=== PATIENT | female | born 1955 | race American Indian/Alaskan Native ===

== ENCOUNTER 2016-05-07 11:57 | Inpatient (IN) | payer OTHER ==
[2016-05-07 12:50] LABS: Basophils % (Auto) 0.5 % (0.0-1.8); Hematocrit 37.7 % (30.3-42.9); Mean Corpuscular HGB Conc 32 % (30-34); Mean Corpuscular Hemoglobin 27 pg (28-32); Mean Corpuscular Volume 85 fl (79-97); Platelet Count 335 K/mm3 (140-440); Red Blood Count 4.44 M/mm3 (3.65-5.03); White Blood Count 12.4 K/mm3 (4.5-11.0)
[2016-05-07 12:53] LABS: Bilirubin,Urine NEG (Negative); Blood,Urine NEG (Negative); Ketones,Urine NEG (Negative); Leukocyte Esterase,Urine NEG (Negative); Mucus,Urine FEW /HPF; Nitrite,Urine NEG (Negative); Protein,Urine <15 mg/dL mg/dL (Negative); Urobilinogen,Urine < 2.0 mg/dL (<2.0)
[2016-05-07 13:08] LABS: Alanine Aminotransferase 12 units/L (7-56); Albumin 4.5 g/dL (3.9-5); Alkaline Phosphatase 72 units/L (35-129); Anion Gap 21 mmol/L; BUN/Creatinine Ratio 14.28; Bilirubin,Total 0.3 mg/dL (0.1-1.2); Blood Urea Nitrogen 10 mg/dL (7-17); Calcium 9.1 mg/dL (8.4-10.2); Carbon Dioxide 25 mmol/L (22-30); Chloride 99.1 mmol/L (98-107); Glucose 137 mg/dL (65-100); Lipase 14 units/L (13-60); Potassium 3.6 mmol/L (3.6-5.0); Sodium 141 mmol/L (137-145); Total Protein 8.8 g/dL (6.3-8.2)
[2016-05-07] MEDS ORDERED: TORADOL IV ONE (15:43)
[2016-05-07] MEDS ORDERED: ZOFRAN IV ONE (15:43)
[2016-05-07] MEDS ORDERED: MORPHINE IV ONE ×2 (16:48→20:01)
--- NOTE | 2016-05-07 19:45 | Cat Scan Report ---
FINAL REPORT PROCEDURE: CT ABDOMEN PELVIS W CON TECHNIQUE: Computerized axial tomography of the abdomen and pelvis was performed after the IV injection of iodinated nonionic contrast. HISTORY: abd pain , recurrent constipation hx of colon canc COMPARISON: No prior studies are available for comparison. FINDINGS: Visualized lower thorax: No significant abnormality. Liver: Normal size and attenuation. Spleen: Normal size and attenuation. Gallbladder and biliary system: Gallbladder is present. Pancreas: Normal. Adrenals: 9 millimeter left adrenal nodule. Kidneys: Normal. GI tract: There are sutures in the left colon. There is a segment of wall thickening and inflammation at the junction of the sigmoid and left colon with a large volume of stool seen this region is well. Cannot exclude an element of obstruction, versus dilatation related to purse surgical changes. No evidence of small bowel obstruction. The appendix is visualized and does not appear inflamed. Lymph nodes and mesentery: Normal. Vasculature: Normal. Bladder: Normal. Reproductive organs: Normal. Peritoneum: No free fluid. Musculoskeletal structures: No significant abnormality. Other: None. IMPRESSION: There is a large volume of stool in the left colon and proximal sigmoid colon. There is a focal segment of wall thickening and inflammation of the proximal sigmoid colon, which is of uncertain etiology. This could be related to focal colitis. Cannot exclude a neoplastic process. This may also be causing partial obstruction. Recommend further evaluation.
[2016-05-07] MEDS ORDERED: GOLYTELY PO ONE (20:15)
--- NOTE | 2016-05-07 20:20 | Emergency Department Report ---
ED Abdominal Pain HPI - General Chief Complaint: Abdominal Pain Stated Complaint: BOWEL BACK UP Time Seen by Provider: 05/07/16 15:34 Source: patient Mode of arrival: Ambulatory Limitations: No Limitations - History of Present Illness Initial Comments: 60-year-old female with a past medical history colon cancer status post colon surgery, diabetes, and hypertension presents to the hospital complaints of abdominal pain and constipation. Patient has not had a good bowel movement in several days and had only a small amount today. Taking enemas without improvement. Patient was seen at [facility] 3 weeks ago for the same and was discharged after receiving a lassitude. Patient complains of 10/10 left upper abdominal pain that is constant, aching, worse with palpation and movement. Positive nausea and dry heaves without vomiting. Severity scale (0 -10): 8 - Related Data Home Medications Medication Instructions Recorded Confirmed Last Taken Losartan/Hydrochlorothiazide 1 each PO QDAY 05/07/16 05/07/16 05/06/16 [Losartan-Hctz 50-12.5 mg Tab] metFORMIN [Glucophage] 500 mg PO QDAY 05/07/16 05/07/16 05/06/16 Allergies Allergy/AdvReac Type Severity Reaction Status Date / Time hydromorphone HCl AdvReac Shortness Verified 05/07/16 12:16 [From Dilaudid] of Breath ED Review of Systems ROS: Stated complaint: BOWEL BACK UP Other details as noted in HPI Comment: All other systems reviewed and negative Other: Constitutional: No fevers chills Eyes: No eye pain visual changes ENT: No ear pain or throat pain Neck: Denies pain Respiratory: Denies cough wheezing shortness of breath Cardiovascular: Denies chest pain, palpitations, syncope GI: as per hpi : Denies dysuria Musculoskeletal: Denies back pain Skin: Denies rash, lesions, erythema Neurologic: Denies headache, numbness, weakness Psychiatric: Denies suicidal ideation, hallucinations Hematological/lymphatic: Denies easy bruising, lymphadenopathy ED Past Medical Hx - Past Medical History Hx Hypertension: Yes Hx Diabetes: Yes Hx of Cancer: Yes (COLON) Hx Headaches / Migraines: Yes - Surgical History Additional Surgical History: COLON SURGERY - Social History Smoking Status: Never Smoker Substance Use Type: None - Medications Home Medications: Home Medications Medication Instructions Recorded Confirmed Last Taken Type Losartan/Hydrochlorothiazide 1 each PO QDAY 05/07/16 05/07/16 05/06/16 History [Losartan-Hctz 50-12.5 mg Tab] metFORMIN [Glucophage] 500 mg PO QDAY 05/07/16 05/07/16 05/06/16 History ED Physical Exam - General Limitations: No Limitations - Other Other exam information: General: No limitations, patient is alert in no acute distress Head exam: Atraumatic, normocephalic Eyes exam: Normal appearance ENT: Moist mucous membrane, normal oropharynx Neck exam: Normal inspection, full range of motion Respiratory exam: Clear to auscultation bilateral, no wheezes, rales, crackles Cardiovascular: Normal rate and rhythm, normal heart sounds Abdomen: Soft, nondistended, left upper quadrant and left mid abdomen pain, with normal bowel sounds, no rebound, or guarding Extremity: Full range of motion normal inspection no deformity Back: Normal Inspection, full range of motion, no tenderness Neurologic: Alert, oriented x3, cranial nerves intact, no motor or sensory deficit Psychiatric: normal affect, normal mood Skin: Warm, dry, intact ED Course Vital Signs 05/07/16 05/07/16 05/07/16 12:05 16:12 16:16 Temperature 97.6 F Pulse Rate 88 Respiratory 19 18 18 Rate Blood Pressure 151/96 Blood Pressure [Left] O2 Sat by Pulse 98 98 Oximetry 05/07/16 05/07/16 05/07/16 17:14 17:45 20:07 Temperature Pulse Rate 73 Respiratory 18 18 18 Rate Blood Pressure Blood Pressure 123/76 [Left] O2 Sat by Pulse 98 Oximetry - Reevaluation(s) Reevaluation #1: 05/07/16 20:23 Patient received morphine 2 doses in the ED for pain. - Consultations Consultation #1: 05/07/16 20:[address] Nanci ESTRADA. Recommended bowel prep ED Medical Decision Making - Lab Data Result diagrams: 05/07/16 12:27 05/07/16 12:27 Lab Results 05/07/16 05/07/16 05/07/16 Range/Units 12:27 12:27 Unknown WBC 12.4 H (4.5-11.0) K/mm3 RBC 4.44 (3.65-5.03) M/mm3 Hgb 12.0 (10.1-14.3) gm/dl Hct 37.7 (30.3-42.9) % MCV 85 (79-97) fl MCH 27 L (28-32) pg MCHC 32 (30-34) % RDW 15.0 (13.2-15.2) % Plt Count 335 (140-440) K/mm3 Lymph % (Auto) 6.4 L (13.4-35.0) % [place] % (Auto) 3.9 (0.0-7.3) % Eos % (Auto) 0.0 (0.0-4.3) % Baso % (Auto) 0.5 (0.0-1.8) % Lymph # 0.8 L (1.2-5.4) K/mm3 [place] # 0.5 (0.0-0.8) K/mm3 Eos # 0.0 (0.0-0.4) K/mm3 Baso # 0.1 (0.0-0.1) K/mm3 Seg Neutrophils % 89.2 H (40.0-70.0) % Seg Neutrophils # 11.0 H (1.8-7.7) K/mm3 Sodium 141 (137-145) mmol/L Potassium 3.6 (3.6-5.0) mmol/L Chloride 99.1 (98-107) mmol/L Carbon Dioxide 25 (22-30) mmol/L Anion Gap 21 mmol/L BUN 10 (7-17) mg/dL Creatinine 0.7 (0.7-1.2) mg/dL Estimated GFR > 60 ml/min BUN/Creatinine Ratio 14.28 % Glucose 137 H (65-100) mg/dL Calcium 9.1 (8.4-10.2) mg/dL Total Bilirubin 0.3 (0.1-1.2) mg/dL AST 14 (5-40) units/L ALT 12 (7-56) units/L Alkaline Phosphatase 72 (35-129) units/L Total Protein 8.8 H (6.3-8.2) g/dL Albumin 4.5 (3.9-5) g/dL Albumin/Globulin Ratio 1.0 % Lipase 14 (13-60) units/L Urine Color [place] (Yellow) Urine Turbidity Clear (Clear) Urine pH 5.0 (5.0-7.0) Ur Specific Peak 1.024 (1.003-1.030) Urine Protein <15 mg/dl (Negative) mg/dL Urine Glucose (UA) Neg (Negative) mg/dL Urine Ketones Neg (Negative) mg/dL Urine Blood Neg (Negative) Urine Nitrite Neg (Negative) Urine Bilirubin Neg (Negative) Urine Urobilinogen < 2.0 (<2.0) mg/dL Ur Leukocyte Esterase Neg (Negative) Urine WBC (Auto) 1.0 (0.0-6.0) /HPF Urine RBC (Auto) 2.0 (0.0-6.0) /HPF U Epithel Cells (Auto) 3.0 (0-13.0) /HPF Urine Mucus Few /HPF - Radiology Data Radiology results: report reviewed (CT abdomen and pelvis by mouth IV contrast: large volume of stool in the left colon and proximal sigmoid colon. Focal segment of wall thickening and inflammation of the proximal sigmoid colon of uncertain etiology. Differential includes focal colitis but cannot exclude neoplastic process.) - Medical Decision Making Patient will be admitted to the hospital for treatment assessment constipation and pain. GI will consult to determine if inpatient colonoscopy is warranted. - Differential Diagnosis obstruction, constipation, cancer Critical Care Time: No Critical care attestation.: If time is entered above; I have spent that time in minutes in the direct care of this critically ill patient, excluding procedure time. ED Disposition Clinical Impression: Constipation, History of colon cancer, Abdominal pain Disposition: OP ADMITTED IP TO THIS HOSP Is pt being admited?: Yes Condition: Stable Time of Disposition: 20:20 (Dr Davis)
[2016-05-07] MEDS ORDERED: NACL 0.9% 1000 ML 1,000 ML IV ONE (20:41)
[2016-05-07] MEDS ORDERED: TYLENOL PO PRN (20:50)
[2016-05-07] MEDS ORDERED: D50W (25GM) IV PRN (20:51)
[2016-05-08] MEDS ORDERED: MORPHINE IV PRN (03:32)
--- NOTE | 2016-05-08 08:28 | Admit Criteria Form ---
Admission Criteria Documentation: ABDOMINAL PAIN Clinical Indications for Admission to Inpatient Care (Place 'X' for any and all applicable criteria): Admission is indicated for ANY ONE of the following(1)(2)(3)(4)(5): [ X]I. Inpatient admission required rather than observation care (Also use Abdominal Pain: Observation Care, as appropriate) because of ANY ONE of the following: [X ]a) Severe pain requiring acute inpatient management [ ]b) Identification of etiology/finding that requires inpatient care (eg, aortic dissection, free air) [ ]c) Absent bowel sounds with complete ileus(6) [ ]d) Suspected toxic megacolon [ ]e) Severe electrolyte abnormalities requiring inpatient care [ ]f) High fever or infection requiring inpatient admission as indicated by ANY ONE of following(7)(8): [ ] i) Appropriate outpatient or observational care antimicrobial treatment unavailable, not effective, or not feasible [ ] ii) Documented bacteremia [ ] iii) Temperature > 104.9 degrees F (oral) [ ] iv) T >103.1 F (oral) or < 96.8 F(rectal) that does not respond to all emergency treatment measures [ ]g) Signs of intestinal obstruction [B] [ ]h) Hemodynamic instability [ ]i) IV fluid to replace significant ongoing losses (greater than 3 L/m2 per day) (12)(13) [ ]j) Percutaneous or open drainage (eg, abscess, biliary tract ) procedures [ ]k) Parenteral nutrition regimen that must be implemented on inpatient basis [ X]l) Other condition,treatment or monitoring requiring inpatient admission. [ ]II. Peritoneal signs present [ ]III. Surgery needed that cannot be performed on an ambulatory basis. [ ]IV. Evaluation requires patient to not eat or drink for extended period ( eg, more than 24 hours). [ ]V. Contraindications and/or Inappropriate clinical situations for Observational Care in patients with abdominal pain, when ANY ONE of the following is required: [ ]a) Thorough evaluation is required to prevent catastrophic events due to delays in diagnosing (e.g.Mesenteric ischemia) 1,3 [ ]b) Patient with severe pathology or with chronic symptoms unlikely to improve in the ED stay (3) [ ]. General contraindications and/or Inappropriate clinical situations for Observational Care in patients with abdominal pain, when ANY ONE of the following is required: [ ]a) Prediction of prolongation of LOS based on ANY ONE of the following may be considered as a contraindication for observational care 2, 3, 4, 5, 6, 7, 8, 9, 10, 11 [ ]i) Age > 65 yrs. [ ]ii) Patient arriving by ambulance [ ]iii) Patient with high acuity [ ]iv) Patient requiring vital sign monitoring [ ]v) Patient on IV medication [ ]b) Systolic blood pressures 180mmHg 3,12 [ ]c) Patient with altered mental status including delirium and other alteration of consciousness, (3) [ ]d) Patient whose discharge disposition will be to a penitentiary home or rehabilitation home should not be managed in Emergency Department Observation Unit. CMS rule requires 3 days hospital stay before such placement.3,13 [ ]e) Patient with failure to thrive due to broad array of etiologies 3,16,17 [ ]f) Inability to ambulate 3,14 Extended stay beyond goal length of stay may be needed for(2)(3): [ ]a) Persistent abdominal pain with suspected intra-abdominal process [ ]b) Diagnosed condition requiring continued stay (e.g., pancreatitis, complicated diverticulitis) [ ]c) Surgery (e.g., colectomy) The original [facility] content created by [employer] has been revised. The portions of the content which have been revised are identified through the use of italic text or in bold, and [facility] has neither reviewed nor approved the modified material.All other unmodified content is copyright [facility]. Please see references footnoted in the original [facility] edition 2016 Admission Criteria Met: Yes
--- NOTE | 2016-05-08 09:00 | History and Physical Report ---
History of Present Illness Date of examination: 05/08/16 Date of admission: 05/07/16 20:32 Chief complaint: Abdominal pain Constipation Nausea Shortness of breath History of present illness: 60-year-old female who presented in the office on account of constipation ongoing for the past week, patient stated that he had she has not had any bowel movement. Patient was seen in the emergency room at [facility] emergency room one week ago with similar complaints, patient was given an enema she stated that she had 2 large bowel movements since then has not been having any further bowel movements. After taking some laxative at home patient did not respond and on account of this presented to the office this morning with abdominal pain nausea but no vomiting, patient also complained of shortness of breath but no chest pain. Patient had colonoscopy in 2009 when it was discovered that she had multiple polyps, during the procedure, 28 polyps were removed and some of them were reported to be malignant and subsequently patient has been having follow-up with Dr. Merchant obiee architect and her most recent colonoscopy was in 2014 during which no additional polyps were discovered. She reports that she has not had a total of 3 episodes of constipation that she had to present to the emergency room over the past 6 months. Patient is a known diabetic currently on oral diabetic medications with fair control patient is also on blood pressure medication and has been following in the office regularly without most recent hemoglobin A1c below 6. Patient denied any fever, no chest pain and no additional comparison at this time. Past History Past Medical History: diabetes (polypectomy) Social history: Family history: diabetes, hypertension Medications and Allergies Allergies Allergy/AdvReac Type Severity Reaction Status Date / Time hydromorphone HCl AdvReac Shortness Verified 05/07/16 12:16 [From Dilaudid] of Breath Home Medications Medication Instructions Recorded Confirmed Last Taken Type Losartan/Hydrochlorothiazide 1 each PO QDAY 05/07/16 05/07/16 05/06/16 History [Losartan-Hctz 50-12.5 mg Tab] metFORMIN [Glucophage] 500 mg PO QDAY 05/07/16 05/07/16 05/06/16 History Active Meds: Active Medications Acetaminophen (Tylenol) 650 mg PO Q6H PRN PRN Reason: Pain Dextrose (D50w (25gm)) 50 ml IV PRN PRN PRN Reason: Hypoglycemia Sodium Chloride (Nacl 0.9% 1000 Ml) 1,000 mls @ 42 mls/hr IV ONCE ONE Stop: 05/08/16 20:29 Last Admin: 05/07/16 22:02 Dose: 42 mls/hr Insulin Human Regular (Novolin R) 0 units SUB-Q ACHS DAYNA PRN Reason: Protocol Last Admin: 05/08/16 08:10 Dose: Not Given Morphine Sulfate (Morphine) 2 mg IV Q4H PRN PRN Reason: Pain, Moderate (4-6) Last Admin: 05/08/16 06:00 Dose: 2 mg Review of Systems Constitutional: fatigue, weakness Cardiovascular: palpitations, shortness of breath Gastrointestinal: change in bowel habits Exam - Constitutional Vitals: Temp Pulse Resp BP Pulse Ox 97.5 F L 75 18 110/56 100 05/08/16 01:00 05/08/16 01:00 05/08/16 06:00 05/08/16 01:00 05/08/16 01:00 General appearance: Present: no acute distress - EENT ENT: clear oral mucosa - Neck Neck: Present: normal ROM - Respiratory Respiratory effort: normal Respiratory: bilateral: CTA - Cardiovascular Rhythm: regular Heart Sounds: Present: S1 & S2 - Extremities Extremities: no ischemia, pulses intact, pulses symmetrical, No edema, normal temperature Peripheral Pulses: within normal limits - Abdominal General gastrointestinal: Present: soft, tender, distended, mass Localized gastrointestinal: tender: LUQ, epigastric periumbilical, guarding: LUQ , RLQ, epigastric periumbilical Female genitourinary: Present: deferred - Rectal Rectal Exam: deferred - Integumentary Integumentary: Present: clear - Musculoskeletal Musculoskeletal: strength equal bilaterally - Psychiatric Psychiatric: appropriate mood/affect - Neurologic Neurologic: moves all extremities Results - Labs CBC & Chem 7: 05/11/16 04:47 05/11/16 04:47 Labs: Abnormal lab results 05/08/16 05/08/16 Range/Units 00:48 06:40 POC Glucose 144 H 130 H (70-105) Assessment and Plan - Patient Problems (1) Abdominal pain Current Visit: Yes Status: Acute Qualifiers: Abdominal location: left lower quadrant Qualified Code(s): R10.32 - Left lower quadrant pain Plan to address problem: Will admit for further workup ,keep on clear liquid (2) Constipation Current Visit: Yes Status: Acute Qualifiers: Constipation type: outlet dysfunction constipation Qualified Code(s): K59.02 - Outlet dysfunction constipation Plan to address problem: Patient will need repeat colonoscopy to evaluate for possible obstructive lesion . (3) History of colon cancer Current Visit: Yes Status: Resolved Plan to address problem: previous excision of multiple polyps with some malignant on histology ,Followup colonoscopy on two [place] ocassions post polyp excision have been negative .
--- NOTE | 2016-05-08 18:55 | Gastroenterology Consultation ---
History of Present Illness - Reason for Consult Consult date: 05/08/16 Constipation/abnormal CT scan - History of Present Illness Asked to see this 60yo woman w/ hx of colon cancer for recurrent constipation. She states that this is her 3rd episode of fecal impaction. She had a recent ER visit at [place], where she was given enemas with good results. However, she has had recurrent symptoms with associated abdominal discomfort. CT A/P was done, which showed sutures in the left colon, with questionable component of obstruction vs mass. She was given bowel prep last evening, which she consumed 1/2 of, at the time I examined her this AM. She did not have any BM, so colonoscopy was cancelled. Past History Past Medical History: diabetes (polypectomy) Past Surgical History: Other (partial colon resection) Social history: Family history: diabetes, hypertension Medications and Allergies Allergies Allergy/AdvReac Type Severity Reaction Status Date / Time hydromorphone HCl AdvReac Shortness Verified 05/07/16 12:16 [From Dilaudid] of Breath Home Medications Medication Instructions Recorded Confirmed Last Taken Type Losartan/Hydrochlorothiazide 1 each PO QDAY 05/07/16 05/07/16 05/06/16 History [Losartan-Hctz 50-12.5 mg Tab] metFORMIN [Glucophage] 500 mg PO QDAY 05/07/16 05/07/16 05/06/16 History Active Meds: Active Medications Acetaminophen (Tylenol) 650 mg PO Q6H PRN PRN Reason: Pain Last Admin: 05/08/16 14:10 Dose: 650 mg Dextrose (D50w (25gm)) 50 ml IV PRN PRN PRN Reason: Hypoglycemia Sodium Chloride (Nacl 0.9% 1000 Ml) 1,000 mls @ 42 mls/hr IV ONCE ONE Stop: 05/08/16 20:29 Last Admin: 05/07/16 22:02 Dose: 42 mls/hr Insulin Human Regular (Novolin R) 0 units SUB-Q ACHS DAYNA PRN Reason: Protocol Last Admin: 05/08/16 17:00 Dose: Not Given Morphine Sulfate (Morphine) 2 mg IV Q4H PRN PRN Reason: Pain, Moderate (4-6) Last Admin: 05/08/16 06:00 Dose: 2 mg Review of Systems - Review of Systems All systems: negative (abd discomfort, constipation) Exam - Constitutional Vital Signs: Temp Pulse Resp BP Pulse Ox 98.1 F 59 L 16 100/55 16 L 05/08/16 17:10 05/08/16 17:10 05/08/16 17:10 05/08/16 17:10 05/08/16 17:10 General appearance: no acute distress - Neck Neck: supple - Respiratory Respiratory: bilateral: CTA - Cardiovascular Rhythm: regular Heart Sounds: Present: S1 & S2 Extremities: No edema - Gastrointestinal General gastrointestinal: Present: soft, non-tender, non-distended, normal bowel sounds - Neurologic Neurological: alert and oriented x3 - Psychiatric Psychiatric: appropriate mood/affect - Labs CBC & Chem 7: 05/07/16 12:27 05/07/16 12:27 Lab Results: Laboratory Results - last 24 hr 05/08/16 05/08/16 05/08/16 00:48 06:40 11:49 POC Glucose 144 H 130 H 138 H 05/08/16 17:09 POC Glucose 118 H - Imaging CT Scan: report reviewed Assessment and Plan 60yo woman with hx of early colon ca, diagnosed in 2014, s/p partial colon resection (left), with recurrent constipation. CT shows inflammation with possible component of obstruction vs mass. Rec: 1) Continue Go-Lytely 2) Add enemas 3) Hold off on colonoscopy at this time; will re-assess and determine if inpatient colonoscopy is warranted
--- NOTE | 2016-05-09 10:50 | Gastroenterology Progress Note ---
Assessment and Plan - Patient Problems (1) Fecal impaction of colon Current Visit: Yes Status: Chronic Plan to address problem: - The patient has a hx of recurrent fecal impactions, likely due to scar tissue from prior colon surgery (2009). - Colonoscopy ([facility]) 2014 was negative for mass or severe stenosis. - Will advance to regular diet, and start miralax daily therapy. - If recurrent, will consult surgery, and repeat colonoscopy (with plans for resection of anastamosis). - If tolerates diet with regular BMs, then may d/c home and can f/u in clinic with Dr Merchant with consideration of repeat colonoscopy as an outpatient based on clinical course. Subjective Date of service: 05/09/16 Principal diagnosis: Fecal Impaction Interval history: The patient had multiple BMs with Golyte and an enema, without bleeding. She has no distention, N/V, and wants to eat. She denies abdominal pain. Objective - Constitutional Vitals: Temp Pulse Resp BP Pulse Ox 98 F 64 18 95/53 96 05/08/16 23:00 05/08/16 23:00 05/08/16 23:00 05/08/16 23:00 05/08/16 23:00 General appearance: no acute distress - EENT Eyes: PERRL, EOM intact ENT: hearing intact - Respiratory Respiratory effort: normal Respiratory: bilateral: CTA - Cardiovascular Rhythm: regular Heart Sounds: Present: S1 & S2 - Gastrointestinal General gastrointestinal: Present: soft, non-tender, non-distended - Labs CBC & Chem 7: 05/07/16 12:27 05/07/16 12:27 Labs: Laboratory Results - last 24 hr 05/08/16 05/08/16 05/08/16 11:49 17:09 21:18 POC Glucose 138 H 118 H 88 05/09/16 05/09/16 06:31 07:46 POC Glucose 118 H 122 H
[2016-05-09] MEDS: MIRALAX 3350 PO SCH (14:49)
--- NOTE | 2016-05-09 16:10 | Progress Note ---
Assessment and Plan 1. Fecal impaction: secondary to prior surgery. Patient has had a bowel movement. No nausea no vomiting. Plan to discharge if patient is tolerating regular diet and symptoms continue to improve and follow primary care physician as well as her gastroenterologists. 2. History of colon cancer: status post resection 2. Abdomen: Resolving Subjective Date of service: 05/09/16 Principal diagnosis: Fecal Impaction Interval history: Feeling beeter. Had good BM today Objective - Constitutional Vitals: Vital Signs - 12hr 05/09/16 08:00 Temperature 97.5 F L Pulse Rate [ 60 Apical] Respiratory 20 Rate Blood Pressure 217/71 [Right Arm] O2 Sat by Pulse 98 Oximetry General appearance: Present: no acute distress, well-nourished - EENT Eyes: PERRL, EOM intact ENT: hearing intact, clear oral mucosa Ears: bilateral: normal - Neck Neck: supple, normal ROM - Respiratory Respiratory effort: normal Respiratory: bilateral: CTA - Breasts Breasts: normal - Cardiovascular Rhythm: regular Heart Sounds: Present: S1 & S2. Absent: gallop, rub Extremities: pulses intact, No edema, normal color, Full ROM - Gastrointestinal General gastrointestinal: Present: soft, non-tender, non-distended, normal bowel sounds - Genitourinary Female genitourinary: normal - Integumentary Integumentary: clear, warm, dry - Musculoskeletal Musculoskeletal: 1, strength equal bilaterally - Neurologic Neurologic: moves all extremities - Psychiatric Psychiatric: memory intact, appropriate mood/affect, intact judgment & insight - Labs CBC & Chem 7: 05/07/16 12:27 05/07/16 12:27 Labs: Abnormal lab results 05/08/16 05/09/16 05/09/16 Range/Units 17:09 06:31 07:46 POC Glucose 118 H 118 H 122 H (70-105) 05/09/16 Range/Units 12:12 POC Glucose 121 H (70-105)
[2016-05-10] MEDS: MIRALAX 3350 PO SCH (10:06)
--- NOTE | 2016-05-10 11:14 | Gastroenterology Progress Note ---
Assessment and Plan - Patient Problems (1) Fecal impaction of colon Current Visit: Yes Status: Chronic Plan to address problem: - The patient has a hx of recurrent fecal impactions, likely due to scar tissue from prior colon surgery (2009). - Colonoscopy ([facility]) 2014 was negative for mass or severe stenosis. - Will continue regular diet, and add senna to miralax daily therapy. - If recurrent, will consult surgery, and repeat colonoscopy (with plans for resection of anastamosis). - If tolerates diet with regular BMs, then may d/c home and can f/u in clinic with Dr Merchant with consideration of repeat colonoscopy as an outpatient based on clinical course. Subjective Date of service: 05/10/16 Principal diagnosis: Fecal Impaction Interval history: The patient has no abdominal pain, and has tolerated her regular diet without distention, nausea or vomiting. She has passed no blood, and had no BM overnight. Objective - Constitutional Vitals: Temp Pulse Resp BP Pulse Ox 98.2 F 66 18 113/55 96 05/10/16 09:34 05/10/16 09:34 05/10/16 09:34 05/10/16 09:34 05/10/16 09:34 General appearance: no acute distress - EENT Eyes: PERRL, EOM intact - Respiratory Respiratory effort: normal Respiratory: bilateral: CTA - Cardiovascular Rhythm: regular Heart Sounds: Present: S1 & S2 - Gastrointestinal General gastrointestinal: Present: soft, non-tender, non-distended - Labs CBC & Chem 7: 05/07/16 12:27 05/07/16 12:27 Labs: Laboratory Results - last 24 hr 05/09/16 05/09/16 05/09/16 12:12 16:23 21:27 POC Glucose 121 H 215 H 89 05/10/16 06:43 POC Glucose 119 H
--- NOTE | 2016-05-10 16:33 | Progress Note ---
Assessment and Plan 1. Fecal impaction: secondary to prior surgery. Patient has had a bowel movement. No nausea no vomiting. Plan to discharge if patient is tolerating regular diet and symptoms continue to improve and follow primary care physician as well as her gastroenterologists. 2. History of colon cancer: status post resection 2. Abdomen: Resolving Subjective Date of service: 05/10/16 Principal diagnosis: Fecal Impaction Interval history: No new complaints. Objective - Constitutional Vitals: Vital Signs - 12hr 05/10/16 09:34 Temperature 98.2 F Pulse Rate [ 66 Apical] Respiratory 18 Rate Blood Pressure 113/55 [Right Arm] O2 Sat by Pulse 96 Oximetry General appearance: Present: no acute distress, well-nourished - EENT Eyes: PERRL, EOM intact ENT: hearing intact, clear oral mucosa Ears: bilateral: normal - Neck Neck: supple, normal ROM - Respiratory Respiratory effort: normal Respiratory: bilateral: CTA - Cardiovascular Rhythm: regular Heart Sounds: Present: S1 & S2. Absent: gallop, rub Extremities: pulses intact, No edema, normal color, Full ROM - Gastrointestinal General gastrointestinal: Present: soft, non-tender, non-distended, normal bowel sounds - Genitourinary Female genitourinary: normal - Integumentary Integumentary: clear, warm, dry - Musculoskeletal Musculoskeletal: 1, strength equal bilaterally - Neurologic Neurologic: moves all extremities - Psychiatric Psychiatric: memory intact, appropriate mood/affect, intact judgment & insight - Labs CBC & Chem 7: 05/07/16 12:27 05/07/16 12:27 Labs: Abnormal lab results 05/09/16 05/10/16 Range/Units 16:23 06:43 POC Glucose 215 H 119 H (70-105)
[2016-05-10] MEDS: SENOKOT PO SCH (22:08)
[2016-05-11 06:09] LABS: Basophils % (Auto) 0.7 % (0.0-1.8); Eosinophils % (Auto) 3.6 % (0.0-4.3); Hematocrit 31.3 % (30.3-42.9); Hemoglobin 10.1 gm/dl (10.1-14.3); Mean Corpuscular HGB Conc 32 % (30-34); Mean Corpuscular Hemoglobin 27 pg (28-32); Mean Corpuscular Volume 85 fl (79-97); Platelet Count 298 K/mm3 (140-440); Red Blood Count 3.69 M/mm3 (3.65-5.03); Red Cell Distribution Width 14.9 % (13.2-15.2); White Blood Count 5.8 K/mm3 (4.5-11.0)
[2016-05-11 06:32] LABS: Alanine Aminotransferase 10 units/L (7-56); Albumin 3.6 g/dL (3.9-5); Albumin/Globulin Ratio 1.3 %; Alkaline Phosphatase 55 units/L (35-129); Anion Gap 17 mmol/L; BUN/Creatinine Ratio 13.33; Bilirubin,Total < 0.2 mg/dL (0.1-1.2); Blood Urea Nitrogen 8 mg/dL (7-17); Calcium 8.1 mg/dL (8.4-10.2); Carbon Dioxide 26 mmol/L (22-30); Chloride 104.1 mmol/L (98-107); Glucose 128 mg/dL (65-100); Potassium 3.7 mmol/L (3.6-5.0); Sodium 143 mmol/L (137-145); Total Protein 6.4 g/dL (6.3-8.2)
[2016-05-11] MEDS: MIRALAX 3350 PO SCH (11:52)
--- NOTE | 2016-05-11 14:55 | Progress Note ---
Assessment and Plan - Patient Problems (1) Abdominal pain Current Visit: Yes Status: Acute Qualifiers: Abdominal location: left lower quadrant Qualified Code(s): R10.32 - Left lower quadrant pain Plan to address problem: Continue on regular diet if no response to laxative ,patient will need repeat colonoscopy . Has been to ER on 2 separate ocassion in past three weeks for fecal impaction . Will discuss with GI about having colonosopy done before discharging patient home . (2) Constipation Current Visit: Yes Status: Acute Qualifiers: Constipation type: outlet dysfunction constipation Qualified Code(s): K59.02 - Outlet dysfunction constipation Plan to address problem: Patient will need repeat colonoscopy to evaluate for possible obstructive lesion . (3) History of colon cancer Current Visit: Yes Status: Resolved Plan to address problem: previous excision of multiple polyps with some malignant on histology ,Followup colonoscopy on two separtrentone ocassions post polyp excision have been negative . Subjective Date of service: 05/11/16 Principal diagnosis: Fecal Impaction Interval history: Patient complaining of nasal congestion ,cough and sneezing but no fever or chills and no shortness of breath . patient was restated back on regular diet over the weekend but yet to have any BM ,had Miralax and dulcolax yesterday .Patient stated that abdominal pain has subsided . Objective - Constitutional Vitals: Vital Signs - 12hr 05/11/16 07:00 Temperature 98.6 F Pulse Rate [ 57 L Apical] Respiratory 20 Rate Blood Pressure 120/59 [Right Arm] O2 Sat by Pulse 95 Oximetry General appearance: Present: no acute distress - Neck Neck: supple, normal ROM - Respiratory Respiratory effort: normal Respiratory: bilateral: CTA - Breasts Breasts: deferred - Cardiovascular Rhythm: regular Heart Sounds: Present: S1 & S2 Extremities: pulses symmetrical, No edema, normal temperature - Gastrointestinal General gastrointestinal: Present: soft, non-tender, non-distended, normal bowel sounds Rectal Exam: deferred - Genitourinary Female genitourinary: deferred - Integumentary Integumentary: clear, warm, dry - Musculoskeletal Musculoskeletal: strength equal bilaterally - Neurologic Neurologic: CNII-XII intact - Psychiatric Psychiatric: appropriate mood/affect - Labs CBC & Chem 7: 05/11/16 04:47 05/11/16 04:47 Labs: Abnormal lab results 02/05/11/16 05/11/16 Range/Units 21:46 04:47 04:47 MCH 27 L (28-32) pg [place] % (Auto) 8.6 H (0.0-7.3) % Creatinine 0.6 L (0.7-1.2) mg/dL Glucose 128 H (65-100) mg/dL POC Glucose 138 H (70-105) Calcium 8.1 L (8.4-10.2) mg/dL Albumin 3.6 L (3.9-5) g/dL 05/11/16 05/11/16 Range/Units 06:35 11:59 MCH (28-32) pg [place] % (Auto) (0.0-7.3) % Creatinine (0.7-1.2) mg/dL Glucose (65-100) mg/dL POC Glucose 128 H 114 H (70-105) Calcium (8.4-10.2) mg/dL Albumin (3.9-5) g/dL
[2016-05-11] MEDS: SENOKOT PO SCH (21:23)
[2016-05-12] MEDS: ROBITUSSIN PO PRN ×2 (00:19→12:52)
--- NOTE | 2016-05-12 12:30 | Discharge Summary ---
Providers - Providers Date of Admission: 05/07/16 20:32 Date of discharge: 05/12/16 Attending physician: ROSMERY SYED 05/07/16 20:48 Consult to Physician [CONS] Routine Consulting Provider: HUY MERCHANT Reason For Exam: Constipation Place consult to:: [facility] Notified:: No Primary care physician: [facility] Hospitalization Reason for admission: constipation, fecal impaction, abdominal pain Condition: Stable Procedures: CT scan of the abdomen did not show any definite mass and no obstruction Hospital course: 60-year-old female who was admitted to the hospital after evaluation in the office. Patient presented with abdominal pain and constipation which had been ongoing for over a week prior to presentation. Patient had presented at the emergency room at [facility] 7 days prior to presentation the office with similar complaints, patient was treated given an enema and discharged home on Laxatives . Patient however continued to have abdominal discomforts and constipation and therefore presented back in the office. Patient had a flat plate abdomen x-ray done in the office which showed large amount of stool in the colon extending all the way with possible impaction when there was no evidence of obstruction. Patient was admitted to the hospital and started on clear liquid diet consultation was put into the GI patient subsequently had soapsuds enema with good return and patient was continued on GoLYTELY as well. Patient was evaluated by the GI, CT scan of the abdomen was done which did not show any evidence of obstruction but did show areas in the colon that require further evaluation but no definite obstruction or mass. Patient was put on MiraLAX as well as stool softener and GI evaluation completed the patient should be evaluated as outpatient restarted back on regular diet and patient has had 2 bowel movements since yesterday. Plan is to discharge patient home for further outpatient evaluation including repeat colonoscopy. The last colonoscopy was done in [address] Merchant and did not show any evidence of polyps. Patient has had previous colonoscopy in 2009 that showed multiple polyps for which patient has subsequent resection of the segment of the colon and patient has been doing well since then. Patient is now being discharged for outpatient follow-up for colonoscopy with Dr. Merchant as scheduled. Disposition: STILL A PATIENT - Discharge Diagnoses (1) Abdominal pain Status: Acute Qualifiers: Abdominal location: left lower quadrant Qualified Code(s): R10.32 - Left lower quadrant pain (2) Constipation Status: Acute Qualifiers: Constipation type: outlet dysfunction constipation Qualified Code(s): K59.02 - Outlet dysfunction constipation (3) History of colon cancer Status: Resolved Core Measure Documentation - Palliative Care Palliative Care/ Comfort Measures: Not Applicable - Core Measures Any of the following diagnoses?: none Exam - Physical Exam Narrative exam: GENERAL: Patient is not in any acute distress not pale not jaundiced no cyanosis HEENT: Mucous membranes moist no oral lesions, pharynx is clear with no exudate or hemorrhage NECK: No JVD, no thyroid enlargement and no lymphadenopathy. CHEST/LUNGS: Good air exchange bilaterally, no wheeze, no rales and no rhonchi. No chest wall tenderness, percussion is normal, symmetrical chest wall. HEART/CARDIOVASCULAR: Regular rate and rhythm, S1 and S2 only, no murmur. ABDOMEN: Abdomen is soft nondistended, healed laparotomy scar, no palpable mass palpable abdomen no guarding no rebound bowel sound is active liver spleen and kidneys are not enlarged SKIN: Warm and dry, no rash. NEURO: Awake, alert, oriented x3, speech normal. Power 5/5 in all the extremities. EXTREMITIES: No pedal edema, good peripheral pulses, no finger or toe clubbing. - Constitutional Vitals: Temp Pulse Resp BP Pulse Ox 99 F 73 16 131/64 16 L 05/12/16 06:55 05/12/16 06:55 05/12/16 06:55 05/12/16 06:55 05/12/16 06:55 Plan Activity: no restrictions Weight Bearing Status: Full Weight Bearing Diet: regular, low salt, low carbohydrate Follow up with: GIANNA RATLIFF MD [Primary Care Provider] - 7 Days HUY MERCHANT MD [Staff Physician] - 7 Days Prescriptions: Losartan/Hydrochlorothiazide [Losartan-Hctz 50-12.5 mg Tab] 1 each PO QDAY #30 tablet metFORMIN [Glucophage] 500 mg PO BID #60 tablet Polyethylene Glycol 3350 [Miralax 3350] 17 gm PO QDAY #30 powd.pack Sennosides Tab [Senokot] 17.2 mg PO QHS #30 tablet
[2016-05-12] MEDS: MIRALAX 3350 PO SCH (12:54)
[2016-05-12 14:40] VITALS: BP 136/65
== END 2016-05-12 14:30 | disposition home or self-care (01) | DRG 390 ==
LOC: ED 11:57 → 3A 20:32
PROVIDERS: ADMIT Internal Medicine; ATTEND Internal Medicine
DX: K56.41 Fecal impaction (principal); E11.9 Type 2 diabetes mellitus without complications; I10 Essential (primary) hypertension; Z85.038 Personal history of other malignant neoplasm of large intestine; Z90.49 Acquired absence of other specified parts of digestive tract; Z79.84 Long term (current) use of oral hypoglycemic drugs; Z88.8 Allergy status to other drugs, medicaments and biological substances; Z83.3 Family history of diabetes mellitus; Z82.49 Family history of ischemic heart disease and other diseases of the circulatory system
CPT/HCPCS: 36415; 74177; 80053; 81001; 82962; 83690; 85025; 96374; 96375; 96376; J1815; J1885; J2270; J2405; J7030; Q9967

== ENCOUNTER 2020-05-01 21:51 | Observation (INO) | payer MEDICARE ==
--- NOTE | 2020-05-01 22:02 | Event Note ---
ED Screening Note Date of service: 05/01/20 Time: 22:02 ED Screening Note: 64-year-old female presents to the ER today complaining of abdominal pain and constipation. Onset a couple weeks ago. She states that she is been taking MiraLAX and Dulcolax without much relief. She states that she has a history of small bowel obstruction in the past and is concerned that her symptoms could be related to another obstruction. Her last obstruction was about 2 years ago. No surgical intervention was needed. This initial assessment/diagnostic orders/clinical plan/treatment(s) is/are subject to change based on patients health status, clinical progression and re- assessment by fellow clinical providers in the ED. Further treatment and workup at subsequent clinical providers discretion. Patient/guardian urged not to elope from the ED as their condition may be serious if not clinically assessed and managed. Initial orders include: Abdominal pain order sets
[2020-05-01 22:36] LABS: Basophils % (Auto) 0.6 % (0.0-1.8); Eosinophils # (Auto) 0.1 K/mm3 (0.0-0.4); Eosinophils % (Auto) 1.6 % (0.0-4.3); Hematocrit 32.8 % (30.3-42.9); Lymphocytes # (Auto) 1.5 K/mm3 (1.2-5.4); Lymphocytes % (Auto) 18.3 % (13.4-35.0); Mean Corpuscular HGB Conc 34 % (30-34); Mean Corpuscular Volume 87 fl (79-97); Monocytes # (Auto) 0.6 K/mm3 (0.0-0.8); Monocytes % (Auto) 7.3 % (0.0-7.3); Platelet Count 335 K/mm3 (140-440); Red Blood Count 3.76 M/mm3 (3.65-5.03); Red Cell Distribution Width 15.1 % (13.2-15.2)
[2020-05-01 22:55] LABS: Alanine Aminotransferase 10 units/L (7-56); Albumin 4.6 g/dL (3.9-5); BUN/Creatinine Ratio 23; Blood Urea Nitrogen 18 mg/dL (7-17); Calcium 10.1 mg/dL (8.4-10.2); Hemolysis Index 2
[2020-05-01 23:03] LABS: Bilirubin,Direct < 0.2 mg/dL (0-0.2)
--- NOTE | 2020-05-01 23:26 | Emergency Department Report ---
ED Abdominal Pain HPI - General Chief Complaint: Abdominal Pain Stated Complaint: CONSTIPATION PUI?: No Time Seen by Provider: 05/01/20 22:01 Source: patient Mode of arrival: Ambulatory Limitations: No Limitations - History of Present Illness Initial Comments: Patient is 64-year-old female that presents emergency room with complaints of abdominal pain and constipation. Patient states she has been having this for several weeks. Patient states she was passing small amounts of stool for 1 week and for the last 7 days she has not had a bowel movement. Patient states she is passing some gas but has not passed any today. Patient states her last normal bowel movement was a couple weeks ago. Patient denies nausea and vomiting. Patient states she has a history of small bowel obstruction. Patient states she has been obstructed before. Patient states the abdominal pain is in her left upper quadrant. Patient states the pain is worse with movement and palpation. Patient states the pain is better with rest. Patient denies recent travel. Patient denies recent international travel. Patient denies exposure to the novel coronavirus. Patient denies sick contacts. Patient denies fever and chills. Patient denies cough. Patient denies diarrhea. Patient denies coming in contact with anybody with symptoms of the novel coronavirus. MD Complaint: abdominal pain -: Sudden Location: LUQ Radiation: none Migration to: no migration Severity: severe Severity scale (0 -10): 10 Quality: stabbing Consistency: constant Improves With: rest Worsens With: movement Associated Symptoms: constipation. denies: nausea, vomiting, diarrhea, fever, chills, dysuria, hematemesis, hematochezia, melena, hematuria, anorexia, syncope - Related Data Previous Rx's Medication Instructions Recorded Last Taken Type Losartan/Hydrochlorothiazide 1 each PO QDAY #30 tablet 05/12/16 Unknown Rx [Losartan-Hctz 50-12.5 mg Tab] Sennosides Tab [Senokot] 17.2 mg PO QHS #30 tablet 05/12/16 Unknown Rx metFORMIN [Glucophage] 500 mg PO BID #60 tablet 05/12/16 Unknown Rx polyethylene glycoL 3350 [Miralax 17 gm PO QDAY #30 powd.pack 05/12/16 Unknown Rx 3350] Allergies Allergy/AdvReac Type Severity Reaction Status Date / Time hydromorphone HCl AdvReac Shortness Verified 02/16/17 12:16 [From Dilaudid] of Breath ED Review of Systems ROS: Stated complaint: CONSTIPATION Other details as noted in HPI Constitutional: denies: chills, fever Eyes: denies: eye pain, eye discharge, vision change ENT: denies: ear pain, throat pain Respiratory: denies: cough, shortness of breath, wheezing Cardiovascular: denies: chest pain, palpitations Endocrine: no symptoms reported Gastrointestinal: as per HPI, abdominal pain, constipation. denies: nausea, diarrhea Genitourinary: denies: urgency, dysuria, discharge Musculoskeletal: denies: back pain, joint swelling, arthralgia Skin: denies: rash, lesions Neurological: denies: headache, weakness, paresthesias Psychiatric: denies: anxiety, depression Hematological/Lymphatic: denies: easy bleeding, easy bruising ED Past Medical Hx - Past Medical History Previous Medical History?: Yes Hx Hypertension: Yes Hx Congestive Heart Failure: No Hx Diabetes: Yes Hx Headaches / Migraines: Yes Hx Asthma: Yes Hx COPD: No Additional medical history: SBO, Colon CA - Surgical History Past Surgical History?: Yes Additional Surgical History: COLON SURGERY - Family History Family history: no significant - Social History Smoking Status: Never Smoker Substance Use Type: None - Medications Home Medications: Home Medications Medication Instructions Recorded Confirmed Last Taken Type Losartan/Hydrochlorothiazide 1 each PO QDAY #30 tablet 05/12/16 Unknown Rx [Losartan-Hctz 50-12.5 mg Tab] Sennosides Tab [Senokot] 17.2 mg PO QHS #30 tablet 05/12/16 Unknown Rx metFORMIN [Glucophage] 500 mg PO BID #60 tablet 05/12/16 Unknown Rx polyethylene glycoL 3350 [Miralax 17 gm PO QDAY #30 powd.pack 05/12/16 Unknown Rx 3350] ED Physical Exam - General Limitations: No Limitations General appearance: alert, in no apparent distress - Head Head exam: Present: atraumatic, normocephalic - Eye Eye exam: Present: normal appearance - ENT ENT exam: Present: mucous membranes moist - Neck Neck exam: Present: normal inspection - Respiratory Respiratory exam: Present: normal lung sounds bilaterally. Absent: respiratory distress - Cardiovascular Cardiovascular Exam: Present: regular rate, normal rhythm. Absent: systolic murmur, diastolic murmur, rubs, gallop - GI/Abdominal GI/Abdominal exam: Present: soft, normal bowel sounds - Extremities Exam Extremities exam: Present: normal inspection - Back Exam Back exam: Present: normal inspection - Neurological Exam Neurological exam: Present: alert, oriented X3 - Psychiatric Psychiatric exam: Present: normal affect, normal mood - Skin Skin exam: Present: warm, dry, intact, normal color. Absent: rash ED Course Vital Signs 05/01/20 05/01/20 21:59 23:19 Temperature 98.8 F Pulse Rate 88 77 Respiratory 18 18 Rate Blood Pressure 133/75 Blood Pressure 141/59 [Left] O2 Sat by Pulse 97 100 Oximetry - Reevaluation(s) Reevaluation #1: I discussed all results with patient. I discussed plan of care with patient. Patient agrees with plan of care and admission. Patient to be admitted to the hospitalist service. 05/02/20 00:35 - Consultations Consultation #1: I discussed case with Dr. Sun, general surgery. Dr. Sun wants the patient to be admitted and she will see the patient in the morning. 05/02/20 00:30 Consultation #2: Hospitalist consulted for admission. Hospitalist to admit patient. 05/02/20 00:33 ED Medical Decision Making - Lab Data Result diagrams: 05/01/20 22:15 05/01/20 22:15 - Radiology Data Radiology results: report reviewed CT ABDOMEN AND PELVIS WITH CONTRAST INDICATION / CLINICAL INFORMATION: Abdominal Pain with constipation / Hx of S.B.O.. TECHNIQUE: Axial CT images were obtained through the abdomen and pelvis after IV contrast. All CT scans at this location are performed using CT dose reduction for ALARA by means of automated exposure control. COMPARISON: CT dated 05/07/16 FINDINGS: LOWER CHEST: Bibasilar scarring is unchanged. No acute abnormality. LIVER: Liver is diffusely hypodense characteristic of fatty infiltration. No focal abnormality. GALLBLADDER: No significant abnormality. BILE DUCTS: No significant abnormality. PANCREAS: No significant abnormality. SPLEEN: No significant abnormality. ADRENALS: No significant abnormality. RIGHT KIDNEY / URETER: Tiny nonobstructing intrarenal stone. LEFT KIDNEY / URETER: Tiny nonobstructing intrarenal stone. STOMACH / SMALL BOWEL: No significant abnormality. COLON: Focally dilated segment of proximal sigmoid colon in the mid abdomen at the site of previous colonic surgery. There is a large stool ball within this dilated segment of colon measuring 7.7 x 6.1 x 9.1 cm. There is focal narrowing of the sigmoid colon just distal to this is best seen on coronal series 300 image 93. The dilated segment which may represent a colonic stricture. No acute inflammatory process. APPENDIX: No significant abnormality. PERITONEUM: No free fluid. No free air. No fluid collection. LYMPH NODES: No significant adenopathy. AORTA / ARTERIES: No significant abnormality. IVC / VEINS: No significant abnormality. URINARY BLADDER: No significant abnormality. REPRODUCTIVE ORGANS: No significant abnormality. ADDITIONAL FINDINGS: None. SKELETAL SYSTEM: No significant abnormality. IMPRESSION: 1. No inflammatory process or small bowel obstruction. 2. Dilated segment of proximal sigmoid colon containing a large stool ball with possible colonic narrowing/stricture distal to this point at the site of colonic anastomosis.. Follow-up outpatient colonoscopy may be helpful. 3. Hepatic steatosis. 4. Tiny, bilateral, nonobstructing intrarenal stones. No ureteral stone or hydronephrosis. - Medical Decision Making Patient is a 64-year-old female that presents emergency room for abdominal pain and constipation. Patient had a CT done which shows a large stool ball at the anastomosis site consistent with a large bowel obstruction. Patient's labs are essentially unremarkable. I discussed the case with general surgery and general surgery recommendations were received. Patient admitted to the hospital service for further evaluation treatment. - Differential Diagnosis LBO, SBO, ABD PAIN. Constipation Critical Care Time: Yes Critical care time in (mins) excluding proc time.: 35 Critical care attestation.: If time is entered above; I have spent that time in minutes in the direct care of this critically ill patient, excluding procedure time. Critical Care Time: 35 MINUTES ED Disposition Clinical Impression: Large bowel obstruction Constipation Qualifiers: Constipation type: unspecified constipation type Qualified Code(s): K59.00 - Constipation, unspecified Abdominal pain Qualifiers: Abdominal location: left upper quadrant Qualified Code(s): R10.12 - Left upper quadrant pain Disposition: OP ADMIT IP TO THIS HOSP Is pt being admited?: Yes Does the pt Need Aspirin: No Condition: Critical Instructions: Abdominal Pain (ED) Time of Disposition: 00:31
--- NOTE | 2020-05-02 00:16 | Cat Scan Report ---
CT ABDOMEN AND PELVIS WITH CONTRAST INDICATION / CLINICAL INFORMATION: Abdominal Pain with constipation / Hx of S.B.O.. TECHNIQUE: Axial CT images were obtained through the abdomen and pelvis after IV contrast. All CT sc ans at this location are performed using CT dose reduction for ALARA by means of automated exposure c ontrol. COMPARISON: CT dated 05/07/16 FINDINGS: LOWER CHEST: Bibasilar scarring is unchanged. No acute abnormality. LIVER: Liver is diffusely hypodense characteristic of fatty infiltration. No focal abnormality. GALLBLADDER: No significant abnormality. BILE DUCTS: No significant abnormality. PANCREAS: No significant abnormality. SPLEEN: No significant abnormality. ADRENALS: No significant abnormality. RIGHT KIDNEY / URETER: Tiny nonobstructing intrarenal stone. LEFT KIDNEY / URETER: Tiny nonobstructing intrarenal stone. STOMACH / SMALL BOWEL: No significant abnormality. COLON: Focally dilated segment of proximal sigmoid colon in the mid abdomen at the site of previous c olonic surgery. There is a large stool ball within this dilated segment of colon measuring 7.7 x 6.1 x 9.1 cm. There is focal narrowing of the sigmoid colon just distal to this is best seen on coronal s eries 300 image 93. The dilated segment which may represent a colonic stricture. No acute inflammator y process. APPENDIX: No significant abnormality. PERITONEUM: No free fluid. No free air. No fluid collection. LYMPH NODES: No significant adenopathy. AORTA / ARTERIES: No significant abnormality. IVC / VEINS: No significant abnormality. URINARY BLADDER: No significant abnormality. REPRODUCTIVE ORGANS: No significant abnormality. ADDITIONAL FINDINGS: None. SKELETAL SYSTEM: No significant abnormality. IMPRESSION: 1. No inflammatory process or small bowel obstruction. 2. Dilated segment of proximal sigmoid colon containing a large stool ball with possible colonic narr owing/stricture distal to this point at the site of colonic anastomosis.. Follow-up outpatient colono scopy may be helpful. 3. Hepatic steatosis. 4. Tiny, bilateral, nonobstructing intrarenal stones. No ureteral stone or hydronephrosis. Signer Name: Harry Metz MD Signed: 05/02/2020 12:12 AM Workstation Name: [id number]
[2020-05-02 00:34] LABS: Bilirubin,Urine NEG (Negative); Blood,Urine NEG (Negative); Color,Urine Yellow (Yellow); Mucus,Urine FEW /HPF; Protein,Urine <15 mg/dL mg/dL (Negative); Urobilinogen,Urine < 2.0 mg/dL (<2.0)
[2020-05-02] MEDS ORDERED: MORPHINE 2 MG/1 ML INJ IV PRN (00:48)
[2020-05-02] MEDS ORDERED: DEXTROSE 50% IN WATER (25GM) 50 ML SYRINGE IV PRN (00:48)
[2020-05-02] MEDS ORDERED: ONDANSETRON 4 MG/2 ML INJ IV PRN (00:48)
[2020-05-02] MEDS ORDERED: hydrALAZINE 20 MG/1 ML INJ IV PRN (00:51)
[2020-05-02] MEDS ORDERED: diphenhydrAMINE 50 MG/ML VIAL IV PRN (00:51)
--- NOTE | 2020-05-02 00:55 | History and Physical Report ---
History of Present Illness Date of examination: 05/02/20 Date of admission: 05/02/2020 Chief complaint: Abdominal pain, constipation History of present illness: 64-year-old -[place] female with history of colon cancer, sym-xshoxld-rfymapylf diabetes, hypertension, and chronic constipation who presents to [facility] with complaints of abdominal pain and constipation. Patient complains of no bowel movement x1 week, and decided to take oral laxative to assist. After taking a laxative she had a few episodes of " skinny/long" and soft BMs, but continued to have the feeling of incomplete emptying. Endorses passing flatus in the past week, but hasn't today. Additionally patient complains of severe 10/10 left lower quadrant stabbing pain, which is relieved with rest and aggravated with movement. Endorses nausea. Denies diarrhea, emesis, fever, chills, melena, hematochezia, chest pain, shortness of breath, palpitation, or recent sick contacts Past History Past Medical History: other (Colon cancer, DM 2, HTN, migraines, SBO) Past Surgical History: Other (Colon resection) Social history: , lives with family, full code. denies: smoking, alcohol abuse, prescription drug abuse, IV drug use Family history: hypertension Medications and Allergies Allergies Allergy/AdvReac Type Severity Reaction Status Date / Time hydromorphone HCl AdvReac Shortness Verified 05/07/16 12:16 [From Dilaudid] of Breath Home Medications Medication Instructions Recorded Confirmed Last Taken Type Losartan/Hydrochlorothiazide 1 each PO QDAY #30 tablet 05/12/16 Unknown Rx [Losartan-Hctz 50-12.5 mg Tab] Sennosides Tab [Senokot] 17.2 mg PO QHS #30 tablet 05/12/16 Unknown Rx metFORMIN [Glucophage] 500 mg PO BID #60 tablet 05/12/16 Unknown Rx polyethylene glycoL 3350 [Miralax 17 gm PO QDAY #30 powd.pack 05/12/16 Unknown Rx 3350] Review of Systems All systems: negative (Except as noted in HPI) Exam - Physical Exam Narrative exam: Physical exam General appearance: Present: No acute distress, alert and oriented 3, pleasant older adult -[place] female - EENT Eyes: Present: PERRL, EOM intact ENT: hearing intact, normal dentition - Neck Neck: Present: supple, normal ROM - Respiratory Respiratory effort: Non-labored Respiratory: Clear throughout - Cardiovascular Heart rate: 78 (bpm) Rhythm: Sinus Heart Sounds: Present: S1 & S2. Absent: rub, click - Extremities Extremities: no ischemia, pulses intact, - Peripheral Assessment Peripheral Pulses: within normal limits - Abdominal General gastrointestinal: Slightly distended, non-tender, normal bowel sounds - Integumentary Integumentary: Present: warm, dry - Musculoskeletal Musculoskeletal: Able to move all extremities -Neurological Neurological: CN II-XII intact - Psychiatric Psychiatric: Cooperative - Constitutional Vitals: Temp Pulse Resp BP Pulse Ox 98.8 F 77 18 141/59 100 05/01/20 21:59 05/01/20 23:19 05/01/20 23:19 05/01/20 23:19 05/01/20 23:19 Results - Labs CBC & Chem 7: 05/01/20 22:15 05/01/20 22:15 Labs: Laboratory Last Values WBC 8.4 K/mm3 (4.5-11.0) 05/01/20 22:15 RBC 3.76 M/mm3 (3.65-5.03) 05/01/20 22:15 Hgb 11.0 gm/dl (10.1-14.3) 05/01/20 22:15 Hct 32.8 % (30.3-42.9) 05/01/20 22:15 MCV 87 fl (79-97) 05/01/20 22:15 MCH 29 pg (28-32) 05/01/20 22:15 MCHC 34 % (30-34) 05/01/20 22:15 RDW 15.1 % (13.2-15.2) 05/01/20 22:15 Plt Count 335 K/mm3 (140-440) 05/01/20 22:15 Lymph % (Auto) 18.3 % (13.4-35.0) 05/01/20 22:15 [place] % (Auto) 7.3 % (0.0-7.3) 05/01/20 22:15 Eos % (Auto) 1.6 % (0.0-4.3) 05/01/20 22:15 Baso % (Auto) 0.6 % (0.0-1.8) 05/01/20 22:15 Lymph # (Auto) 1.5 K/mm3 (1.2-5.4) 05/01/20 22:15 [place] # (Auto) 0.6 K/mm3 (0.0-0.8) 05/01/20 22:15 Eos # (Auto) 0.1 K/mm3 (0.0-0.4) 05/01/20 22:15 Baso # (Auto) 0.0 K/mm3 (0.0-0.1) 05/01/20 22:15 Seg Neutrophils % 72.2 % (40.0-70.0) H 05/01/20 22:15 Seg Neutrophils # 6.0 K/mm3 (1.8-7.7) 05/01/20 22:15 Sodium 142 mmol/L (137-145) 05/01/20 22:15 Potassium 3.9 mmol/L (3.6-5.0) 05/01/20 22:15 Chloride 100.7 mmol/L (98-107) 05/01/20 22:15 Carbon Dioxide 28 mmol/L (22-30) 05/01/20 22:15 Anion Gap 17 mmol/L 05/01/20 22:15 BUN 18 mg/dL (7-17) H 05/01/20 22:15 Creatinine 0.8 mg/dL (0.6-1.2) 05/01/20 22:15 Estimated GFR > 60 ml/min 05/01/20 22:15 BUN/Creatinine Ratio 23 % 05/01/20 22:15 Glucose 103 mg/dL (65-100) H 05/01/20 22:15 Calcium 10.1 mg/dL (8.4-10.2) 05/01/20 22:15 Total Bilirubin 0.20 mg/dL (0.1-1.2) 05/01/20 22:15 Direct Bilirubin < 0.2 mg/dL (0-0.2) 05/01/20 22:15 Indirect Bilirubin 0.0 mg/dL 05/01/20 22:15 AST 13 units/L (5-40) 05/01/20 22:15 ALT 10 units/L (7-56) 05/01/20 22:15 Alkaline Phosphatase 64 units/L (35-129) 05/01/20 22:15 Total Protein 7.3 g/dL (6.3-8.2) 05/01/20 22:15 Albumin 4.6 g/dL (3.9-5) 05/01/20 22:15 Albumin/Globulin Ratio 1.7 % 05/01/20 22:15 Lipase 17 units/L (13-60) 05/01/20 22:15 Urine Color Yellow (Yellow) 05/01/20 Unknown Urine Turbidity Slightly-cloudy (Clear) 05/01/20 Unknown Urine pH 5.0 (5.0-7.0) 05/01/20 Unknown Ur Specific [place] 1.017 (1.003-1.030) 05/01/20 Unknown Urine Protein <15 mg/dl mg/dL (Negative) 05/01/20 Unknown Urine Glucose (UA) Neg mg/dL (Negative) 05/01/20 Unknown Urine Ketones Neg mg/dL (Negative) 05/01/20 Unknown Urine Blood Neg (Negative) 05/01/20 Unknown Urine Nitrite Neg (Negative) 05/01/20 Unknown Urine Bilirubin Neg (Negative) 05/01/20 Unknown Urine Urobilinogen < 2.0 mg/dL (<2.0) 05/01/20 Unknown Ur Leukocyte Esterase Neg (Negative) 05/01/20 Unknown Urine WBC (Auto) 1.0 /HPF (0.0-6.0) 05/01/20 Unknown Urine RBC (Auto) 2.0 /HPF (0.0-6.0) 05/01/20 Unknown U Epithel Cells (Auto) 7.0 /HPF (0-13.0) 05/01/20 Unknown Urine Mucus Few /HPF 05/01/20 Unknown - Imaging and Cardiology Imaging and Cardiology: CT Abd/Pelvis: IMPRESSION: 1. No inflammatory process or small bowel obstruction. 2. Dilated segment of proximal sigmoid colon containing a large stool ball with possible colonic narrowing/stricture distal to this point at the site of colonic anastomosis.. Follow-up outpatient colonoscopy may be helpful. 3. Hepatic steatosis. 4. Tiny, bilateral, nonobstructing intrarenal stones. No ureteral stone or hydronephrosis. Assessment and Plan Assessment and plan: Large bowel obstruction -CT Abd/Pelvis shows dilated segment of proximal sigmoid colon containing a large stool ball with possible colonic narrowing/stricture distal to this point at the site of colonic anastomosis -Dr. Sun (General Surgery) consulted with plans to see in am, recs appreciated -NPO -Supportive care -Day team may consider GI consult Acute abdominal pain -2/2 to Large bowel obstruction and constipation -Supportive care Constipation -c/o constipation and incomplete bm x1 -2 weeks -History of constipation -hold all laxative, stool softners, and enema for now pending recs from Gen Surg DM -POC BG monitoring -SSI coverage prn -HgbA1C pending -Hold Metformin, pt received contrast and is also npo HTN -Monitor BP -IV hydralazine when necessary -Hold oral antihypertensive meds until no longer n.p.o. History of colon cancer -S/p bowel resection VTE prophylaxis?: Mechanical Reason for no VTE Prophylaxis: Medical contraindication Plan of care discussed with patient/family: Yes
[2020-05-02] MEDS ORDERED: D5W/0.45% NACL 1,000 ML IV SCH (01:00)
[2020-05-02] MEDS: MORPHINE 2 MG/1 ML INJ IV PRN ×2 (02:55→06:58)
[2020-05-02] MEDS: INSULIN LISPRO 100 UNIT/ML SUB-Q SCH ×3 (08:00→22:49)
--- NOTE | 2020-05-02 09:45 | Consultation ---
History of Present Illness Consult date: 05/02/20 Reason for consult: abdominal pain - History of present illness History of present illness: 64 year old female presented to ER with a several day hx of worsening abdominal pain. For the past two weeks she has been constipated. She took a laxative a week ago and had soft thin stools. She has had no bowel movement in the last week but has past flatus as recent as today. She has abdominal pain that worse on the left side. She had a CT scan that showed a [id number] fecal ball stuck above what appears to be an anastomotic stricture in the sigmoid colon. (previous hx of colon resection for colon CA) Past History Past Medical History: other (Colon cancer, DM 2, HTN, migraines, SBO) Past Surgical History: Other (Colon resection) Social history: , lives with family, full code. denies: smoking, alcohol abuse, prescription drug abuse, IV drug use Family history: hypertension Medications and Allergies Allergies Allergy/AdvReac Type Severity Reaction Status Date / Time hydromorphone HCl AdvReac Shortness Verified 05/07/16 12:16 [From Dilaudid] of Breath Home Medications Medication Instructions Recorded Confirmed Last Taken Type Losartan/Hydrochlorothiazide 1 each PO QDAY #30 tablet 05/12/16 Unknown Rx [Losartan-Hctz 50-12.5 mg Tab] Sennosides Tab [Senokot] 17.2 mg PO QHS #30 tablet 05/12/16 Unknown Rx metFORMIN [Glucophage] 500 mg PO BID #60 tablet 05/12/16 Unknown Rx polyethylene glycoL 3350 [Miralax 17 gm PO QDAY #30 powd.pack 05/12/16 Unknown Rx 3350] Active Meds: Active Medications Dextrose (Dextrose 50% In Water (25gm) 50 Ml Syringe) 0 ml IV Q30MIN PRN; Protocol PRN Reason: Hypoglycemia Diphenhydramine HCl (Diphenhydramine 50 Mg/Ml Vial) 25 mg IV Q6H PRN PRN Reason: Itching/allergy Hydralazine HCl (Hydralazine 20 Mg/1 Ml Inj) 10 mg IV Q4H PRN PRN Reason: Blood Pressure Dextrose/Sodium Chloride (D5/0.45ns) 1,000 mls @ 75 mls/hr IV DIRECT DAYNA Last Admin: 02/11/21 02:59 Dose: 75 mls/hr Documented by: Levofloxacin/Dextrose (Levaquin 750mg/150ml) 750 mg in 150 mls @ 100 mls/hr IV Q24H DAYNA; Protocol Metronidazole (Flagyl 500 Mg/100 Ml) 500 mg in 100 mls @ 100 mls/hr IV Q8H DAYNA; Protocol Insulin Human Lispro (Insulin Lispro 100 Unit/Ml) 0 unit SUB-Q Q6HR DAYNA; Protocol Last Admin: 05/02/20 08:00 Dose: Not Given Documented by: Morphine Sulfate (Morphine 2 Mg/1 Ml Inj) 2 mg IV Q4H PRN PRN Reason: Pain, Moderate (4-6) Last Admin: 05/02/20 06:58 Dose: 2 mg Documented by: Ondansetron HCl (Ondansetron 4 Mg/2 Ml Inj) 4 mg IV Q6H PRN PRN Reason: Nausea And Vomiting Sodium Chloride (Sodium Chloride 0.9% 10 Ml Flush Syringe) 10 ml IV BID DAYNA Sodium Chloride (Sodium Chloride 0.9% 10 Ml Flush Syringe) 10 ml IV PRN PRN PRN Reason: LINE FLUSH Review of Systems - Cardiovascular no chest pain - Respiratory no cough, no shortness of breath - Gastrointestinal abdominal pain, constipation Exam Vital Signs Temp Pulse Resp BP Pulse Ox 98.8 F 88 18 133/75 97 05/01/20 21:59 05/01/20 21:59 05/01/20 21:59 05/01/20 21:59 05/01/20 21:59 - General physical appearance Positive: well developed, no distress - Respiratory Positive: normal expansion, normal respiratory effort - Cardiovascular Heart Sounds: Present: S1 & S2 - Extremities Extremities: no ischemia - Abdomen Abdomen: Present: soft, other (tender to palpation lower quadrants). Absent: distended, rebound, guarding, rigid - Neurologic Neurologic: alert and oriented to time, place and person Results - Labs 05/01/20 22:15 05/01/20 22:15 Abnormal lab results 05/01/20 05/01/20 05/02/20 Range/Units 22:15 22:15 00:55 Seg Neutrophils % 72.2 H (40.0-70.0) % BUN 18 H (7-17) mg/dL Glucose 103 H (65-100) mg/dL Hemoglobin A1c 9.3 H (4-6) % Diabetes panel 05/01/20 05/02/20 Range/Units 22:15 00:55 Sodium 142 (137-145) mmol/L Potassium 3.9 (3.6-5.0) mmol/L Chloride 100.7 (98-107) mmol/L Carbon Dioxide 28 (22-30) mmol/L BUN 18 H (7-17) mg/dL Creatinine 0.8 (0.6-1.2) mg/dL Glucose 103 H (65-100) mg/dL Hemoglobin A1c 9.3 H (4-6) % Calcium 10.1 (8.4-10.2) mg/dL AST 13 (5-40) units/L ALT 10 (7-56) units/L Alkaline Phosphatase 64 (35-129) units/L Total Protein 7.3 (6.3-8.2) g/dL Albumin 4.6 (3.9-5) g/dL Calcium panel 05/01/20 Range/Units 22:15 Calcium 10.1 (8.4-10.2) mg/dL Albumin 4.6 (3.9-5) g/dL Pituitary panel 05/01/20 Range/Units 22:15 Sodium 142 (137-145) mmol/L Potassium 3.9 (3.6-5.0) mmol/L Chloride 100.7 (98-107) mmol/L Carbon Dioxide 28 (22-30) mmol/L BUN 18 H (7-17) mg/dL Creatinine 0.8 (0.6-1.2) mg/dL Glucose 103 H (65-100) mg/dL Calcium 10.1 (8.4-10.2) mg/dL Adrenal panel 05/01/20 Range/Units 22:15 Sodium 142 (137-145) mmol/L Potassium 3.9 (3.6-5.0) mmol/L Chloride 100.7 (98-107) mmol/L Carbon Dioxide 28 (22-30) mmol/L BUN 18 H (7-17) mg/dL Creatinine 0.8 (0.6-1.2) mg/dL Glucose 103 H (65-100) mg/dL Calcium 10.1 (8.4-10.2) mg/dL Total Bilirubin 0.20 (0.1-1.2) mg/dL AST 13 (5-40) units/L ALT 10 (7-56) units/L Alkaline Phosphatase 64 (35-129) units/L Total Protein 7.3 (6.3-8.2) g/dL Albumin 4.6 (3.9-5) g/dL - Imaging CT scan - abdomen: report reviewed, image reviewed CT scan - pelvis: report reviewed, image reviewed Assessment and Plan 64 year old female with a colonic obstruction due to large fecal ball above an anastomotic stricture in the sigmoid colon. Stable and afebrile. Consulted GI who will attempt to dilate. If unsuccessful may need to have ex lap with colostomy. Discussed with patient. will continue to follow
[2020-05-02] MEDS: metroNIDAZOLE/NS 500 MG/100 ML 500 MG/100 ML BAG IV SCH ×2 (10:38→17:06)
--- NOTE | 2020-05-02 11:16 | Progress Note ---
Assessment and Plan Assessment and plan: --Large bowel obstruction CT Abd/Pelvis shows dilated segment of proximal sigmoid colon containing a large stool ball with possible colonic narrowing/stricture distal to this point at the site of colonic anastomosis Dr. Sun (General Surgery) consulted with plans to see in am, recs appreciated NPO status.IV fluids And supportive care GI consulted, possible colonoscopy or Gastrografin enema --Acute abdominal pain; Due to severe constipation, and large bowel obstruction Management per surgery and GI N.p.o. status --Severe constipation Off and on for 1 to 2 weeks IV fluids, enema, GI and surgery following --History of colon cancer S/p bowel resection --Type II DM Accu-Chek sliding scale coverage ADA diet Insulin as needed, hold oral hypoglycemics A1c 9.3 --HTN: Moderate control Continue current antihypertensives and as needed hydralazine --DVT prophylaxis ; subcu heparin/SCDs Closely monitor the patient and adjust the management as needed Follow surgery and GI evaluation recommendations Plan of care reviewed with the patient and her nurse History Interval history: I have seen and examined the patient at the bedside Patient's chart and medications reviewed Patient was admitted with abdominal pain/colonic obstruction/constipation Surgery evaluated the patient, recommend GI evaluation Patient has no new complaints Hospitalist Physical - Constitutional Vitals: Temp Pulse Resp BP Pulse Ox 97.5 F L 69 16 103/55 98 05/02/20 08:57 05/02/20 08:57 05/02/20 08:57 05/02/20 08:57 05/02/20 08:57 General appearance: Present: mild distress, well-nourished, obese - EENT Eyes: Present: PERRL, EOM intact - Neck Neck: Present: supple, normal ROM - Respiratory Respiratory effort: normal - Cardiovascular Rhythm: irregularly irregular - Extremities Extremities: no ischemia, pulses intact - Abdominal General gastrointestinal: soft, non-tender, normal bowel sounds - Integumentary Integumentary: Present: clear, warm - Psychiatric Psychiatric: appropriate mood/affect, cooperative - Neurologic Neurologic: CNII-XII intact, moves all extremities Results - Labs CBC & Chem 7: 05/01/20 22:15 05/01/20 22:15 Labs: Laboratory Last Values WBC 8.4 K/mm3 (4.5-11.0) 05/01/20 22:15 RBC 3.76 M/mm3 (3.65-5.03) 05/01/20 22:15 Hgb 11.0 gm/dl (10.1-14.3) 05/01/20 22:15 Hct 32.8 % (30.3-42.9) 05/01/20 22:15 MCV 87 fl (79-97) 05/01/20 22:15 MCH 29 pg (28-32) 05/01/20 22:15 MCHC 34 % (30-34) 05/01/20 22:15 RDW 15.1 % (13.2-15.2) 05/01/20 22:15 Plt Count 335 K/mm3 (140-440) 05/01/20 22:15 Lymph % (Auto) 18.3 % (13.4-35.0) 05/01/20 22:15 [place] % (Auto) 7.3 % (0.0-7.3) 05/01/20 22:15 Eos % (Auto) 1.6 % (0.0-4.3) 05/01/20 22:15 Baso % (Auto) 0.6 % (0.0-1.8) 05/01/20 22:15 Lymph # (Auto) 1.5 K/mm3 (1.2-5.4) 05/01/20 22:15 [place] # (Auto) 0.6 K/mm3 (0.0-0.8) 05/01/20 22:15 Eos # (Auto) 0.1 K/mm3 (0.0-0.4) 05/01/20 22:15 Baso # (Auto) 0.0 K/mm3 (0.0-0.1) 05/01/20 22:15 Seg Neutrophils % 72.2 % (40.0-70.0) H 05/01/20 22:15 Seg Neutrophils # 6.0 K/mm3 (1.8-7.7) 05/01/20 22:15 Sodium 142 mmol/L (137-145) 05/01/20 22:15 Potassium 3.9 mmol/L (3.6-5.0) 05/01/20 22:15 Chloride 100.7 mmol/L (98-107) 05/01/20 22:15 Carbon Dioxide 28 mmol/L (22-30) 05/01/20 22:15 Anion Gap 17 mmol/L 05/01/20 22:15 BUN 18 mg/dL (7-17) H 05/01/20 22:15 Creatinine 0.8 mg/dL (0.6-1.2) 05/01/20 22:15 Estimated GFR > 60 ml/min 05/01/20 22:15 BUN/Creatinine Ratio 23 % 05/01/20 22:15 Glucose 103 mg/dL (65-100) H 05/01/20 22:15 POC Glucose 98 mg/dL (70-105) 05/02/20 09:01 Hemoglobin A1c 9.3 % (4-6) H 05/02/20 00:55 Calcium 10.1 mg/dL (8.4-10.2) 05/01/20 22:15 Total Bilirubin 0.20 mg/dL (0.1-1.2) 05/01/20 22:15 Direct Bilirubin < 0.2 mg/dL (0-0.2) 05/01/20 22:15 Indirect Bilirubin 0.0 mg/dL 05/01/20 22:15 AST 13 units/L (5-40) 05/01/20 22:15 ALT 10 units/L (7-56) 05/01/20 22:15 Alkaline Phosphatase 64 units/L (35-129) 05/01/20 22:15 Total Protein 7.3 g/dL (6.3-8.2) 05/01/20 22:15 Albumin 4.6 g/dL (3.9-5) 05/01/20 22:15 Albumin/Globulin Ratio 1.7 % 05/01/20 22:15 Lipase 17 units/L (13-60) 05/01/20 22:15 Urine Color Yellow (Yellow) 05/01/20 Unknown Urine Turbidity Slightly-cloudy (Clear) 05/01/20 Unknown Urine pH 5.0 (5.0-7.0) 05/01/20 Unknown Ur Specific [place] 1.017 (1.003-1.030) 05/01/20 Unknown Urine Protein <15 mg/dl mg/dL (Negative) 05/01/20 Unknown Urine Glucose (UA) Neg mg/dL (Negative) 05/01/20 Unknown Urine Ketones Neg mg/dL (Negative) 05/01/20 Unknown Urine Blood Neg (Negative) 05/01/20 Unknown Urine Nitrite Neg (Negative) 05/01/20 Unknown Urine Bilirubin Neg (Negative) 05/01/20 Unknown Urine Urobilinogen < 2.0 mg/dL (<2.0) 05/01/20 Unknown Ur Leukocyte Esterase Neg (Negative) 05/01/20 Unknown Urine WBC (Auto) 1.0 /HPF (0.0-6.0) 05/01/20 Unknown Urine RBC (Auto) 2.0 /HPF (0.0-6.0) 05/01/20 Unknown U Epithel Cells (Auto) 7.0 /HPF (0-13.0) 05/01/20 Unknown Urine Mucus Few /HPF 05/01/20 Unknown Active Medications - Current Medications Current Medications: Generic Name Dose Route Start Last Admin Trade Name Freq PRN Reason Stop Dose Admin Dextrose 0 ml 05/02/20 00:48 Dextrose 50% In Water (25gm) 50 Ml Syringe IV Q30MIN PRN Hypoglycemia Protocol Diphenhydramine HCl 25 mg 05/02/20 00:51 Diphenhydramine 50 Mg/Ml Vial IV Q6H PRN Itching/allergy Hydralazine HCl 10 mg 05/02/20 00:51 Hydralazine 20 Mg/1 Ml Inj IV Q4H PRN Blood Pressure Dextrose/Sodium Chloride 1,000 mls @ 75 mls/hr 05/02/20 01:00 05/02/20 02:59 D5/0.45ns IV 75 mls/hr DIRECT DAYNA Administration Levofloxacin/Dextrose 750 mg in 150 mls @ 100 mls/hr 05/02/20 08:00 05/02/20 10:39 Levaquin 750mg/150ml IV 100 mls/hr Q24H DAYNA Administration Protocol Metronidazole 500 mg in 100 mls @ 100 mls/hr 05/02/20 08:00 05/02/20 10:38 Flagyl 500 Mg/100 Ml IV 100 mls/hr Q8H DAYNA Administration Protocol Insulin Human Lispro 0 unit 05/02/20 06:00 05/02/20 08:00 Insulin Lispro 100 Unit/Ml SUB-Q Not Given Q6HR DAYNA Protocol Morphine Sulfate 2 mg 05/02/20 01:05 05/02/20 06:58 Morphine 2 Mg/1 Ml Inj IV 2 mg Q4H PRN Administration Pain, Moderate (4-6) Ondansetron HCl 4 mg 05/02/20 00:48 Ondansetron 4 Mg/2 Ml Inj IV Q6H PRN Nausea And Vomiting Sodium Chloride 10 ml 05/02/20 10:00 Sodium Chloride 0.9% 10 Ml Flush Syringe IV BID DAYNA Sodium Chloride 10 ml 05/02/20 00:48 Sodium Chloride 0.9% 10 Ml Flush Syringe IV PRN PRN LINE FLUSH
--- NOTE | 2020-05-02 14:46 | Anesthesia Consultation ---
Anesthesia Consult and Med Hx Date of service: 05/02/20 - Airway Anesthetic Teeth Evaluation: Good, Chipped (#9) ROM Head & Neck: Adequate Mental/Hyoid Distance: Adequate Mallampati Class: Class II Intubation Access Assessment: Probably Good - Pre-Operative Health Status ASA Pre-Surgery Classification: ASA3 Proposed Anesthetic Plan: MAC - Pulmonary Hx Smoking: No Hx Asthma: Yes COPD: No Hx Pneumonia: No Hx Sleep Apnea: No (high score sharan) - Cardiovascular System Hx Hypertension: Yes Hx Coronary Artery Disease: No Hx Heart Attack/AMI: No Hx Angina: No Hx Internal Defibrillator: No Hx Valvular Heart Disease: No Hx Heart Murmur: No Hx Peripheral Vascular Disease: No - Central Nervous System Hx Seizures: No Hx Psychiatric Problems: No - Gastrointestinal Hx Ulcer: No - Endocrine Hx End Stage Renal Disease: No Hx Liver Disease: No Hx Non-Insulin Dependent Diabetes: Yes Hx Hypothyroidism: No - Hematic Hx Anemia: No Hx Sickle Cell Disease: No - Other Systems Hx Cancer: Yes (h/o Colon CA, s/p colon resection)
--- NOTE | 2020-05-02 14:46 | Anesthesia Day of Surgery ---
Anesthesia Day of Surgery - Day of Surgery Patient Examined: Yes Patient H&P Reviewed: Yes Patient is NPO: Yes
[2020-05-02] MEDS ORDERED: WATER FOR IRRIG STERILE 250 ML BOTTLE IR ONE (14:55)
[2020-05-02] MEDS ORDERED: propofoL 200 MG/20 ML VIAL IV ONE (14:55)
[2020-05-02] MEDS ORDERED: WATER FOR IRRIG STERILE 1,000 ML BOTTLE ONE (14:55)
--- NOTE | 2020-05-02 15:06 | Gastroenterology Consultation ---
History of Present Illness - Reason for Consult Consult date: 05/02/20 colon stricture Requesting physician: LJ NIEVES - History of Present Illness 64-year-old -[place] female with history of colon cancer s/p resection, [id number] diabetes, hypertension, and chronic constipation who presents to [facility] ED with complaints of abdominal pain and constipation and found to have colonic stricture at the anastomosis. Patient complains of no bowel movement x1 week, and decided to take oral laxative to assist. After taking a laxative she had a few episodes of " skinny/long" and soft BMs, but continued to have the feeling of incomplete emptying. abd pain that is lower abd radiating diffusely, intermittant, mod to severe nausea, no severe vomiting reports last colonoscopy was about 2 years ago and she believes it was normal Obtained/updated/reviewed patient's current medications Past History Past Medical History: other (Colon cancer, DM 2, HTN, migraines, SBO) Past Surgical History: Other (Colon resection) Social history: , lives with family, full code. denies: smoking, alcohol abuse, prescription drug abuse, IV drug use Family history: hypertension Medications and Allergies Allergies Allergy/AdvReac Type Severity Reaction Status Date / Time hydromorphone HCl AdvReac Shortness Verified 05/07/16 12:16 [From Dilaudid] of Breath Home Medications Medication Instructions Recorded Confirmed Last Taken Type Losartan/Hydrochlorothiazide 1 each PO QDAY #30 tablet 05/12/16 Unknown Rx [Losartan-Hctz 50-12.5 mg Tab] Sennosides Tab [Senokot] 17.2 mg PO QHS #30 tablet 05/12/16 Unknown Rx metFORMIN [Glucophage] 500 mg PO BID #60 tablet 05/12/16 Unknown Rx polyethylene glycoL 3350 [Miralax 17 gm PO QDAY #30 powd.pack 05/12/16 Unknown Rx 3350] Active Meds: Active Medications Dextrose (Dextrose 50% In Water (25gm) 50 Ml Syringe) 0 ml IV Q30MIN PRN; Protocol PRN Reason: Hypoglycemia Diphenhydramine HCl (Diphenhydramine 50 Mg/Ml Vial) 25 mg IV Q6H PRN PRN Reason: Itching/allergy Hydralazine HCl (Hydralazine 20 Mg/1 Ml Inj) 10 mg IV Q4H PRN PRN Reason: Blood Pressure Dextrose/Sodium Chloride (D5/0.45ns) 1,000 mls @ 75 mls/hr IV DIRECT DAYNA Last Admin: 05/02/20 02:59 Dose: 75 mls/hr Documented by: Levofloxacin/Dextrose (Levaquin 750mg/150ml) 750 mg in 150 mls @ 100 mls/hr IV Q24H DAYNA; Protocol Last Admin: 05/02/20 10:39 Dose: 100 mls/hr Documented by: Metronidazole (Flagyl 500 Mg/100 Ml) 500 mg in 100 mls @ 100 mls/hr IV Q8H DAYNA; Protocol Last Admin: 05/02/20 10:38 Dose: 100 mls/hr Documented by: Sodium Chloride (Nacl 0.9% 1000 Ml) 1,000 mls @ 50 mls/hr IV DIRECT DAYNA Insulin Human Lispro (Insulin Lispro 100 Unit/Ml) 0 unit SUB-Q Q6HR DAYNA; Protocol Last Admin: 05/02/20 13:40 Dose: Not Given Documented by: Morphine Sulfate (Morphine 2 Mg/1 Ml Inj) 2 mg IV Q4H PRN PRN Reason: Pain, Moderate (4-6) Last Admin: 05/02/20 06:58 Dose: 2 mg Documented by: Ondansetron HCl (Ondansetron 4 Mg/2 Ml Inj) 4 mg IV Q6H PRN PRN Reason: Nausea And Vomiting Sodium Chloride (Sodium Chloride 0.9% 10 Ml Flush Syringe) 10 ml IV BID [facility] Last Admin: 05/02/20 13:37 Dose: Not Given Documented by: Sodium Chloride (Sodium Chloride 0.9% 10 Ml Flush Syringe) 10 ml IV PRN PRN PRN Reason: LINE FLUSH Review of Systems - Review of Systems All systems: negative (10 Systems reviewed and negative except as mentioned above in the history of present illness) Exam - Constitutional Vital Signs: Temp Pulse Resp BP Pulse Ox 98.4 F 67 18 125/58 98 05/02/20 11:47 05/02/20 11:47 05/02/20 11:47 05/02/20 11:47 05/02/20 11:47 General appearance: no acute distress - EENT Eyes: EOM intact - Neck Neck: supple - Respiratory Respiratory effort: normal - Cardiovascular Rhythm: regular - Gastrointestinal General gastrointestinal: Present: soft, tender, other (Bowel sounds present) - Integumentary Integumentary: Present: dry - Neurologic Neurological: alert and oriented x3 - Psychiatric Psychiatric: appropriate mood/affect - Labs CBC & Chem 7: 05/01/20 22:15 05/01/20 22:15 Lab Results: Laboratory Results - last 24 hr 05/01/20 05/01/20 05/01/20 22:15 22:15 Unknown WBC 8.4 RBC 3.76 Hgb 11.0 Hct 32.8 MCV 87 MCH 29 MCHC 34 RDW 15.1 Plt Count 335 Lymph % (Auto) 18.3 [place] % (Auto) 7.3 Eos % (Auto) 1.6 Baso % (Auto) 0.6 Lymph # (Auto) 1.5 [place] # (Auto) 0.6 Eos # (Auto) 0.1 Baso # (Auto) 0.0 Seg Neutrophils % 72.2 H Seg Neutrophils # 6.0 Sodium 142 Potassium 3.9 Chloride 100.7 Carbon Dioxide 28 Anion Gap 17 BUN 18 H Creatinine 0.8 Estimated GFR > 60 BUN/Creatinine Ratio 23 Glucose 103 H POC Glucose Hemoglobin A1c Calcium 10.1 Total Bilirubin 0.20 Direct Bilirubin < 0.2 Indirect Bilirubin 0.0 AST 13 ALT 10 Alkaline Phosphatase 64 Total Protein 7.3 Albumin 4.6 Albumin/Globulin Ratio 1.7 Lipase 17 Urine Color Yellow Urine Turbidity Slightly-cloudy Urine pH 5.0 Ur Specific [place] 1.017 Urine Protein <15 mg/dl Urine Glucose (UA) Neg Urine Ketones Neg Urine Blood Neg Urine Nitrite Neg Urine Bilirubin Neg Urine Urobilinogen < 2.0 Ur Leukocyte Esterase Neg Urine WBC (Auto) 1.0 Urine RBC (Auto) 2.0 U Epithel Cells (Auto) 7.0 Urine Mucus Few 05/02/20 05/02/20 00:55 09:01 WBC RBC Hgb Hct MCV MCH MCHC RDW Plt Count Lymph % (Auto) [place] % (Auto) Eos % (Auto) Baso % (Auto) Lymph # (Auto) [place] # (Auto) Eos # (Auto) Baso # (Auto) Seg Neutrophils % Seg Neutrophils # Sodium Potassium Chloride Carbon Dioxide Anion Gap BUN Creatinine Estimated GFR BUN/Creatinine Ratio Glucose POC Glucose 98 Hemoglobin A1c 9.3 H Calcium Total Bilirubin Direct Bilirubin Indirect Bilirubin AST ALT Alkaline Phosphatase Total Protein Albumin Albumin/Globulin Ratio Lipase Urine Color Urine Turbidity Urine pH Ur Specific [place] Urine Protein Urine Glucose (UA) Urine Ketones Urine Blood Urine Nitrite Urine Bilirubin Urine Urobilinogen Ur Leukocyte Esterase Urine WBC (Auto) Urine RBC (Auto) U Epithel Cells (Auto) Urine Mucus Assessment and Plan Patient appears to have an anastomotic stricture which is causing a blockage due to the large stool ball which is present in the sigmoid colon Reviewed with the patient, her only options are surgical intervention which has a high risk of requiring a colostomy versus I can proceed with a flexible sigmoidoscopy and attempted dilation of stricture and attempt to alleviate the obstruction though there would be risk of causing perforation After discussing this at length with the patient the benefits of endoscopic intervention do outweigh the risks, therefore will give patient tapwater enemas and proceed with flexible sigmoidoscopy with attempted dilation of the sigmoid stricture - Patient Problems (1) Colonic stricture Current Visit: Yes Status: Acute (2) Abdominal pain Current Visit: Yes Status: Acute Qualifiers: Abdominal location: left upper quadrant Qualified Code(s): R10.12 - Left upper quadrant pain (3) Constipation Current Visit: Yes Status: Acute Qualifiers: Constipation type: unspecified constipation type Qualified Code(s): K59.00 - Constipation, unspecified (4) Fecal impaction of colon Current Visit: No Status: Chronic (5) History of colon cancer Current Visit: No Status: Resolved
[2020-05-02] MEDS ORDERED: LIDOCAINE MPF (2%) 20 MG/1 ML VIAL 5 ML ONE (15:18)
--- NOTE | 2020-05-02 15:27 | Operative Report ---
Operative Report Operative Report: DOS: 05/02/2020 SURGEON: Delroy Casillas MD Flexible Sigmoidoscopy REPORT PREOPERATIVE AND POSTOPERATIVE DIAGNOSIS: colonic stricture DESCRIPTION OF PROCEDURE: The colonoscope was passed to the sigmoid colon. Scope was carefully withdrawn. Retroflexion was performed in the rectum. At the end of procedure, the scope was cleaned using normal technique. Vital signs monitored continuously throughout. SEDATION: Provided by [facility]. Quality of the prep was poor COMPLICATIONS: None. ESTIMATED BLOOD LOSS: none FINDINGS: normal rectum Large amount of formed solid stool in the sigmoid colon preventing advancement of the scope beyond 40cm RECOMMENDATIONS: * enema administration until sigmoid colon is clear and then will proceed with repeat flex sig tomorrow
[2020-05-02] MEDS ORDERED: FLEET ENEMA PR ONE (16:00)
--- NOTE | 2020-05-02 16:01 | Post Anesthesia Evaluation ---
- Post Anesthesia Evaluation Patient Participated: Yes Airway Patent: Yes Stable Respiratory Function: Yes Nausea/Vomiting: No Temp > 96.8F: Yes Pain Manageable: Yes Adequeate Hydration: Yes Anesthesia Complications: No Block Receding Appropriately: Not Applicable Patient on Ventilator: No
[2020-05-02] MEDS: SODIUM CHLORIDE 0.9% 1000 ML 1,000 ML IV SCH (18:09)
[2020-05-03] MEDS: metroNIDAZOLE/NS 500 MG/100 ML 500 MG/100 ML BAG IV SCH ×2 (01:44→11:06)
[2020-05-03] MEDS: MORPHINE 2 MG/1 ML INJ IV PRN (01:45)
[2020-05-03] MEDS: INSULIN LISPRO 100 UNIT/ML SUB-Q SCH ×4 (01:46→20:51)
--- NOTE | 2020-05-03 07:26 | Anesthesia Day of Surgery ---
Anesthesia Day of Surgery - Day of Surgery Patient Examined: Yes Patient H&P Reviewed: Yes Patient is NPO: Yes
[2020-05-03] MEDS: SODIUM CHLORIDE 0.9% 1000 ML 1,000 ML IV SCH (07:58)
[2020-05-03] MEDS ORDERED: LIDOCAINE MPF (2%) 20 MG/1 ML VIAL 5 ML ONE (08:40)
[2020-05-03] MEDS ORDERED: propofoL 200 MG/20 ML VIAL IV ONE ×2 (08:41→08:53)
--- NOTE | 2020-05-03 09:08 | Operative Report ---
Operative Report Operative Report: DOS: 05/03/20 SURGEON: Delroy Casillas MD COLONOSCOPY REPORT PREOPERATIVE AND POSTOPERATIVE DIAGNOSIS: Abdominal pain, abnormal CAT scan DESCRIPTION OF PROCEDURE: The colonoscope was passed to the terminal ileum as identified by the ileal tissue. Scope was carefully withdrawn. Retroflexion was performed in the rectum. At the end of procedure, the scope was cleaned using normal technique. Vital signs monitored continuously throughout. SEDATION: Provided by [facility]. Quality of the prep was poor COMPLICATIONS: None. ESTIMATED BLOOD LOSS: None FINDINGS: * Normal terminal ileum * Views of the colon were limited due to semisolid stool scattered throughout the colon, however no gross lesions were identified * There is a large amount of soft but solid stool in the sigmoid colon. This was able to be passed with mild difficulty with the colonoscope. The area was carefully examined and no obstruction and no stenosis were visualized RECOMMENDATIONS: * Patient does not have an obstruction nor severe stenosis on today's colonoscopy. Therefore, we will give the patient a colon cleanse to clean out the residual stool, and in the meantime I will place her on a full liquid diet. If she feels well with the cleanse then she may be discharged tomorrow with daily stool softeners and daily MiraLAX to prevent hardening of the stool, and she should follow-up as an outpatient for consideration of repeat colonoscopy after a complete colon cleanse to ensure no missed underlying lesions in the sigmoid colon
[2020-05-03] MEDS ORDERED: POLYETHYLENE GLYCOL/ELECT SOLN 4000 ML PO ONE (10:00)
--- NOTE | 2020-05-03 12:08 | Progress Note ---
Assessment and Plan 64 year old female with constipation. No evidence of stricture or obstruction on full colonoscopy. Afebrile and stable. Pt started on full liquids and bowel prep. No surgical intervention indicated at this time. Agree with GI, pt can be discharged in am if does well today. She should follow up with GI as an outpatient at some point to have another colonoscopy after a good bowel prep. Subjective Date of service: 05/03/20 Patient Reports: Positive: no new complaints, pain is less Narrative: Pt had a colonoscopy this morning that showed no obstruction or stricture. It did show large amount of stool. There was visualization to the ileo-cecal valve. Objective Vital Signs - 12hr 05/03/20 05/03/20 05/03/20 00:50 05:19 07:30 Temperature 97.5 F L 97.2 F L 98.0 F Pulse Rate 73 68 74 Respiratory 18 18 14 Rate Blood Pressure 141/74 108/61 110/67 O2 Sat by Pulse 96 99 99 Oximetry 05/03/20 05/03/20 05/03/20 07:35 09:25 09:30 Temperature 98.0 F 97.1 F L Pulse Rate 74 72 70 Respiratory 14 17 15 Rate Blood Pressure 110/67 121/62 106/70 O2 Sat by Pulse 99 97 97 Oximetry 05/03/20 05/03/20 05/03/20 09:35 09:40 09:55 Temperature 97.2 F L Pulse Rate 69 68 69 Respiratory 20 17 19 Rate Blood Pressure 116/91 115/62 120/78 O2 Sat by Pulse 97 99 98 Oximetry 05/03/20 10:15 Temperature 97.6 F Pulse Rate 83 Respiratory 16 Rate Blood Pressure 131/69 O2 Sat by Pulse 99 Oximetry - General physical appearance well developed, no distress, no pain - Respiratory normal expansion, normal respiratory effort - Abdomen soft, not distended, other (mild tenderness to deep palpation) - Labs 05/01/20 22:15 05/01/20 22:15
--- NOTE | 2020-05-03 12:41 | Progress Note ---
Assessment and Plan Assessment and plan: --Large bowel obstruction CT Abd/Pelvis shows dilated segment of proximal sigmoid colon containing a large stool ball with possible colonic narrowing/stricture distal to this point at the site of colonic anastomosis Dr. Sun (General Surgery) consulted with plans to see in am, recs appreciated NPO status.IV fluids And supportive care GI consulted, possible colonoscopy or Gastrografin enema --Acute abdominal pain; Due to severe constipation, and large bowel obstruction Management per surgery and GI N.p.o. status --Severe constipation Off and on for 1 to 2 weeks IV fluids, enema, GI and surgery following --History of colon cancer S/p bowel resection --Type II DM Accu-Chek sliding scale coverage ADA diet Insulin as needed, hold oral hypoglycemics A1c 9.3 --HTN: Moderate control Continue current antihypertensives and as needed hydralazine --DVT prophylaxis ; subcu heparin/SCDs Closely monitor the patient and adjust the management as needed Follow surgery and GI evaluation recommendations Plan of care reviewed with the patient and her nurse 05/03/2020; patient is receiving GoLYTELY, enema Having bowel movements, continues to have good bowel movements and cleared the bowels Patient may be discharged home Continue all the current management History Interval history: I have seen and examined the patient the bedside Patient feels slightly better patient is on demand stool softener Having bowel movements if continues to have bowel movements GI recommend discharge home tomorrow Patient has no new complaints vital signs stable Hospitalist Physical - Constitutional Vitals: Temp Pulse Resp BP Pulse Ox 97.6 F 83 16 131/69 99 05/03/20 10:15 05/03/20 10:15 05/03/20 10:15 05/03/20 10:15 05/03/20 10:15 General appearance: Present: mild distress, well-nourished, obese - EENT Eyes: Present: PERRL, EOM intact - Neck Neck: Present: supple, normal ROM - Respiratory Respiratory effort: normal Respiratory: bilateral: diminished, negative: rales, rhonchi, wheezing - Cardiovascular Rhythm: regular Heart Sounds: Present: S1 & S2 - Extremities Extremities: no ischemia, No edema - Abdominal General gastrointestinal: soft, non-tender, non-distended, normal bowel sounds - Integumentary Integumentary: Present: clear, warm - Psychiatric Psychiatric: appropriate mood/affect, cooperative - Neurologic Neurologic: CNII-XII intact, moves all extremities Results - Labs CBC & Chem 7: 05/01/20 22:15 05/01/20 22:15 Labs: Laboratory Last Values WBC 8.4 K/mm3 (4.5-11.0) 05/01/20 22:15 RBC 3.76 M/mm3 (3.65-5.03) 05/01/20 22:15 Hgb 11.0 gm/dl (10.1-14.3) 05/01/20 22:15 Hct 32.8 % (30.3-42.9) 05/01/20 22:15 MCV 87 fl (79-97) 05/01/20 22:15 MCH 29 pg (28-32) 05/01/20 22:15 MCHC 34 % (30-34) 05/01/20 22:15 RDW 15.1 % (13.2-15.2) 05/01/20 22:15 Plt Count 335 K/mm3 (140-440) 05/01/20 22:15 Lymph % (Auto) 18.3 % (13.4-35.0) 05/01/20 22:15 [place] % (Auto) 7.3 % (0.0-7.3) 05/01/20 22:15 Eos % (Auto) 1.6 % (0.0-4.3) 05/01/20 22:15 Baso % (Auto) 0.6 % (0.0-1.8) 05/01/20 22:15 Lymph # (Auto) 1.5 K/mm3 (1.2-5.4) 05/01/20 22:15 [place] # (Auto) 0.6 K/mm3 (0.0-0.8) 05/01/20 22:15 Eos # (Auto) 0.1 K/mm3 (0.0-0.4) 05/01/20 22:15 Baso # (Auto) 0.0 K/mm3 (0.0-0.1) 05/01/20 22:15 Seg Neutrophils % 72.2 % (40.0-70.0) H 05/01/20 22:15 Seg Neutrophils # 6.0 K/mm3 (1.8-7.7) 05/01/20 22:15 Sodium 142 mmol/L (137-145) 05/01/20 22:15 Potassium 3.9 mmol/L (3.6-5.0) 05/01/20 22:15 Chloride 100.7 mmol/L (98-107) 05/01/20 22:15 Carbon Dioxide 28 mmol/L (22-30) 05/01/20 22:15 Anion Gap 17 mmol/L 05/01/20 22:15 BUN 18 mg/dL (7-17) H 05/01/20 22:15 Creatinine 0.8 mg/dL (0.6-1.2) 05/01/20 22:15 Estimated GFR > 60 ml/min 05/01/20 22:15 BUN/Creatinine Ratio 23 % 05/01/20 22:15 Glucose 103 mg/dL (65-100) H 05/01/20 22:15 POC Glucose 115 mg/dL (70-105) H 05/03/20 11:29 Hemoglobin A1c 9.3 % (4-6) H 05/02/20 00:55 Calcium 10.1 mg/dL (8.4-10.2) 05/01/20 22:15 Total Bilirubin 0.20 mg/dL (0.1-1.2) 05/01/20 22:15 Direct Bilirubin < 0.2 mg/dL (0-0.2) 05/01/20 22:15 Indirect Bilirubin 0.0 mg/dL 05/01/20 22:15 AST 13 units/L (5-40) 05/01/20 22:15 ALT 10 units/L (7-56) 05/01/20 22:15 Alkaline Phosphatase 64 units/L (35-129) 05/01/20 22:15 Total Protein 7.3 g/dL (6.3-8.2) 05/01/20 22:15 Albumin 4.6 g/dL (3.9-5) 05/01/20 22:15 Albumin/Globulin Ratio 1.7 % 05/01/20 22:15 Lipase 17 units/L (13-60) 05/01/20 22:15 Urine Color Yellow (Yellow) 05/01/20 Unknown Urine Turbidity Slightly-cloudy (Clear) 05/01/20 Unknown Urine pH 5.0 (5.0-7.0) 05/01/20 Unknown Ur Specific [place] 1.017 (1.003-1.030) 05/01/20 Unknown Urine Protein <15 mg/dl mg/dL (Negative) 05/01/20 Unknown Urine Glucose (UA) Neg mg/dL (Negative) 05/01/20 Unknown Urine Ketones Neg mg/dL (Negative) 05/01/20 Unknown Urine Blood Neg (Negative) 05/01/20 Unknown Urine Nitrite Neg (Negative) 05/01/20 Unknown Urine Bilirubin Neg (Negative) 05/01/20 Unknown Urine Urobilinogen < 2.0 mg/dL (<2.0) 05/01/20 Unknown Ur Leukocyte Esterase Neg (Negative) 05/01/20 Unknown Urine WBC (Auto) 1.0 /HPF (0.0-6.0) 05/01/20 Unknown Urine RBC (Auto) 2.0 /HPF (0.0-6.0) 05/01/20 Unknown U Epithel Cells (Auto) 7.0 /HPF (0-13.0) 05/01/20 Unknown Urine Mucus Few /HPF 05/01/20 Unknown Mercedes/IV: Voiding Method Toilet Active Medications - Current Medications Current Medications: Generic Name Dose Route Start Last Admin Trade Name Freq PRN Reason Stop Dose Admin Dextrose 0 ml 05/02/20 00:48 Dextrose 50% In Water (25gm) 50 Ml Syringe IV Q30MIN PRN Hypoglycemia Protocol Diphenhydramine HCl 25 mg 05/02/20 00:51 Diphenhydramine 50 Mg/Ml Vial IV Q6H PRN Itching/allergy Hydralazine HCl 10 mg 05/02/20 00:51 Hydralazine 20 Mg/1 Ml Inj IV Q4H PRN Blood Pressure Dextrose/Sodium Chloride 1,000 mls @ 75 mls/hr 05/02/20 01:00 05/02/20 02:59 D5/0.45ns IV 75 mls/hr DIRECT ADYNA Administration Levofloxacin/Dextrose 750 mg in 150 mls @ 100 mls/hr 05/02/20 08:00 05/03/20 11:06 Levaquin 750mg/150ml IV 100 mls/hr Q24H DAYNA Administration Protocol Metronidazole 500 mg in 100 mls @ 100 mls/hr 05/02/20 08:00 05/03/20 11:06 Flagyl 500 Mg/100 Ml IV 100 mls/hr Q8H DAYNA Administration Protocol Sodium Chloride 1,000 mls @ 50 mls/hr 05/02/20 11:45 05/03/20 07:58 Nacl 0.9% 1000 Ml IV 50 mls/hr DIRECT DAYNA Administration Insulin Human Lispro 0 unit 05/02/20 06:00 05/03/20 01:46 Insulin Lispro 100 Unit/Ml SUB-Q Not Given Q6HR DAYNA Protocol Morphine Sulfate 2 mg 05/02/20 01:05 05/03/20 01:45 Morphine 2 Mg/1 Ml Inj IV 2 mg Q4H PRN Administration Pain, Moderate (4-6) Ondansetron HCl 4 mg 05/02/20 00:48 Ondansetron 4 Mg/2 Ml Inj IV Q6H PRN Nausea And Vomiting Sodium Chloride 10 ml 05/02/20 10:00 05/02/20 23:34 Sodium Chloride 0.9% 10 Ml Flush Syringe IV 10 ml BID DAYNA Administration Sodium Chloride 10 ml 05/02/20 00:48 Sodium Chloride 0.9% 10 Ml Flush Syringe IV PRN PRN LINE FLUSH
[2020-05-04 07:34] VITALS: BP 122/58
--- NOTE | 2020-05-04 12:23 | Discharge Summary ---
Providers - Providers Date of Admission: 05/02/20 00:30 Date of discharge: 05/04/20 Attending physician: ASIF JACOBS 05/02/20 01:21 Consult to Physician [CONS] Routine Comment: Dr. De La Rosa spoke with Dr. Sun @ 0022 Consulting Provider: LJ SUN Physician Instructions: Reason For Exam: LBO 05/02/20 11:24 Consult to Physician [CONS] Routine Comment: Consulting Provider: ROOSEVELT IGNACIO Physician Instructions: Reason For Exam: colonic obstruction/stool obstructing Primary care physician: CHILLER OPERATOR Hospitalization Reason for admission: Abdominal pain/constipation/colon obstruction with stool Condition: Stable Pertinent studies: CT Abd/Pelvis shows dilated segment of proximal sigmoid colon containing a large stool ball with possible colonic narrowing/stricture distal to this point at the site of colonic anastomosis Procedures: s/p colonoscopy and attempted dilation of the stricture and attempt to alleviate the obstruction though there would be risk of causing perforation. Please reviewed the colonoscopy findings. Normal terminal ileum no gross lesions large amount of soft but Hospital course: 64 year old female patient with significant past medical history of type 2 diabetes mellitus hypertension , history of colon cancer status post colon resection in the past follows with GI Dr. Rangel was admitted through emergency room with worsening abdominal pain , and 1 week history of constipation. Initial work-up with CT scan of the abdomen show 7x 6x 9 cm fecal ball obstructing anastomotic stricture in the sigmoid colon. Patient was admitted to the hospital placed n.p.o. status subsequently evaluated by surgery as well as GI GI feels that patient has anastomotic stricture which is causing the blockage due to a large stool ball present in the sigmoid colon, patient was given Water Enemas patient subsequently underwent flex sigmoidoscopy/colonoscopy and attempted dilation of the stricture and attempt to alleviate the obstruction though there would be risk of causing perforation. Please reviewed the colonos copy findings. Normal terminal ileum no gross lesions large amount of soft but solid stool in the colon no obstruction or stenosis visualized GI recommended colon cleanse to clean the residual stool started on full liquid diet advance as tolerated and recommend daily stool softeners and daily MiraLAX to prevent hardening of the stool and follow outpatient per schedule; Today patient feels better no new complaints vital signs stable did have loose bowel stools Tolerated the clear to full liquids, hemodynamically and clinically stable Cleared by GI and surgery, discharged home, stable at discharge Discharge diagnosis; --Large bowel obstruction CT Abd/Pelvis shows dilated segment of proximal sigmoid colon containing a large stool ball with possible colonic narrowing/stricture distal to this point at the site of colonic anastomosis Dr. Sun (General Surgery) and GI Dr. Casillas evaluated the patient Patient underwent a colonoscopy, started on clear liquid diet, advised stool softeners Follow-up with GI and surgery per schedule --Acute abdominal pain; Due to severe constipation, and large bowel obstruction Status post colonoscopy, stool softeners Liquid diet advance as tolerated --Severe constipation Off and on for 1 to 2 weeks IV fluids, enema, GI and surgery following --History of colon cancer S/p bowel resection --Type II DM Accu-Chek sliding scale coverage ADA diet Insulin as needed, hold oral hypoglycemics,A1c 9.3 --HTN: Moderate control Continue current antihypertensives and as needed hydralazine --DVT prophylaxis ; subcu heparin/SCDs Closely monitor the patient and adjust the management as needed Follow surgery and GI evaluation recommendations Plan of care reviewed with the patient and her nurse 05/03/2020; patient is receiving GoLYTELY, enema Having bowel movements, continues to have good bowel movements and cleared the bowels 05/04/2020 patient had good bowel movement tolerating clear to full liquid diet. Cleared by GI discharge Follow-up with private GI and surgery per schedule Disposition: DC-01 TO HOME OR SELFCARE Time spent for discharge: 35 minutes Core Measure Documentation - Palliative Care Palliative Care/ Comfort Measures: Not Applicable - Core Measures Any of the following diagnoses?: none Exam - Constitutional Vitals: Temp Pulse Resp BP Pulse Ox 97.7 F 69 18 122/58 97 05/04/20 07:06 05/04/20 07:06 05/04/20 07:06 05/04/20 07:06 05/04/20 07:06 General appearance: Present: no acute distress, well-nourished, obese - EENT Eyes: Present: PERRL, EOM intact - Neck Neck: Present: supple, enlarged thyroid - Respiratory Respiratory effort: normal Respiratory: bilateral: diminished, rhonchi, negative: rales, wheezing - Cardiovascular Rhythm: regular Heart Sounds: Present: S1 & S2 - Extremities Extremities: no ischemia, No edema - Abdominal General gastrointestinal: Present: soft, non-tender, non-distended, normal bowel sounds - Integumentary Integumentary: Present: clear, warm - Musculoskeletal Musculoskeletal: strength equal bilaterally - Psychiatric Psychiatric: appropriate mood/affect, cooperative - Neurologic Neurologic: moves all extremities Plan Activity: advance as tolerated, fall precautions Diet: diabetic, advance as tolerated, other (Full liquids diet) Additional Instructions: Advised plenty of oral fluids, stool softeners daily as needed. If you have worsening symptoms contact MD or go to emergency room. Advised to follow private GI in 2 weeks or as needed Follow up with: PRIMARY CARE, [Primary Care Provider] - 7 Days HUY RANGEL MD [Staff Physician] - 14 Days LJ SUN MD [Staff Physician] - 14 Days Prescriptions: Docusate Sodium [Colace] 100 mg PO BID PRN #30 capsule PRN Reason: Constipation polyethylene glycoL 3350 [Miralax 3350] 17 gm PO QDAY #30 powd.pack Sennosides Tab [Senokot] 17.2 mg PO QHS #30 tablet
--- NOTE | 2020-05-04 13:15 | Gastroenterology Progress Note ---
Assessment and Plan 64 yo female with h/o bowel resection for colon cancer admitted for concern for anastomotic stricture/stenosis. - s/p colonoscopy on 05/03/2020 showing no signs of obstruction or stenosis. - patient finished more bowel cleans with Gavilyte. feeling much better. - planned for discharge today. Stay on stool softners and daily miralax. - follow up with Dr. Merhcant in GI clinic outpatient. Subjective Date of service: 05/04/20 Interval history: Patient doing well this morning. Reports finishing off the Gavilyte solution. Still having loose stools. Abdomen feeling much better. Objective - Constitutional Vitals: Temp Pulse Resp BP Pulse Ox 97.7 F 69 18 122/58 97 05/04/20 07:06 05/04/20 07:06 05/04/20 07:06 05/04/20 07:06 05/04/20 07:06 General appearance: no acute distress - EENT ENT: hearing intact - Respiratory Respiratory effort: normal - Cardiovascular Rhythm: regular Heart Sounds: Present: S1 & S2 - Gastrointestinal General gastrointestinal: Present: soft, non-tender, non-distended - Integumentary Integumentary: Present: clear, warm - Neurologic Neurological: alert and oriented x3 - Labs CBC & Chem 7: 05/01/20 22:15 05/01/20 22:15 Labs: Laboratory Results - last 24 hr 05/03/20 05/04/20 16:31 07:07 POC Glucose 167 H 107 H
== END 2020-05-04 13:30 | disposition home or self-care (01) ==
LOC: ED 21:51 → 3B-SURG 05-02 00:30 → INTOOBSV 05-02 20:06 → OBSVTOIN 05-02 20:06
PROVIDERS: ADMIT Internal Medicine; ATTEND Internal Medicine
DX: K56.699 Other intestinal obstruction unspecified as to partial versus complete obstruction (principal); K59.00 Constipation, unspecified; I10 Essential (primary) hypertension; E11.9 Type 2 diabetes mellitus without complications; G43.909 Migraine, unspecified, not intractable, without status migrainosus; Z85.038 Personal history of other malignant neoplasm of large intestine; Z98.890 Other specified postprocedural states; Z79.899 Other long term (current) drug therapy; Z79.84 Long term (current) use of oral hypoglycemic drugs
CPT/HCPCS: 36415; 45330; 45378; 74177; 80048; 80076; 81001; 82962; 83036; 83690; 85025; 96361; 96365; 96366; 96368; 96375; 96376; 99291; G0378; J1956; J2270; J2704; J7030; Q9967

== ENCOUNTER 2021-03-21 04:55 | Observation (INO) | payer MEDICARE ==
[2021-03-21] MEDS ORDERED: ONDANSETRON 4 MG/2 ML INJ IV ONE (06:05)
[2021-03-21] MEDS ORDERED: DICYCLOMINE 20 MG/2 ML INJ IM ONE (06:05)
[2021-03-21] MEDS ORDERED: FAMOTIDINE 20 MG/2 ML INJ IV ONE (06:05)
[2021-03-21] MEDS ORDERED: SODIUM CHLORIDE 0.9% 1000 ML 1,000 ML IV ONE (06:05)
--- NOTE | 2021-03-21 06:09 | Event Note ---
ED Screening Note Date of service: 03/21/21 Time: 06:07 ED Screening Note: Patient is a 65-year-old -[place] female with history of hypertension, mvo-lqbfnin-mphtjdabn diabetes who presented to the ED with complaint of acute onset persistent nausea and vomiting, right upper quadrant pain for the last 8 hours. Patient also complains of persistent dry cough for the last 3 days and stated that she has not had a bowel movement in 3 days as well. Patient states that she has been taking Macrobid 100 mg twice a day for the last 5 days for a recent diagnosis of urinary tract infection. Patient denies fever, chills, chest pain, dysuria, urinary frequency and urgency, diarrhea, change in vision, nasal and sinus congestion or sore throat. This initial assessment/diagnostic orders/clinical plan/treatment(s) is/are subject to change based on patients health status, clinical progression and re- assessment by fellow clinical providers in the ED. Further treatment and workup at subsequent clinical providers discretion. Patient/guardian urged not to elope from the ED as their condition may be serious if not clinically assessed and managed. Initial orders include: CBC, CMP, lipase, troponin, EKG, abdomen series x-ray, gallbladder ultrasound
[2021-03-21] MEDS ORDERED: MORPHINE 4 MG/1 ML INJ IV ONE (06:35)
--- NOTE | 2021-03-21 06:39 | Emergency Department Report ---
ED Abdominal Pain HPI - General Chief Complaint: Abdominal Pain Stated Complaint: ABDOMINAL PAIN Time Seen by Provider: 03/21/21 06:18 Source: patient Mode of arrival: Ambulatory Limitations: No Limitations - History of Present Illness Initial Comments: 65-year-old female with a past medical history of diabetes, hypertension, colon cancer status post resection, and SBO presents to the hospital with complaints of abdominal pain, nausea, vomiting. Patient is he started having right upper quadrant crampy dull pain 2 days ago then resolved after drinking water. Pain returned this morning and more constant and severe. Pain is worse with palpation. No alleviating or aggravating factors reported. Last bowel movement was 2 days ago. Patient was here in April for suspected obstruction with a large stool ball in the sigmoid secondary to a colonic stricture based on CT report. Patient underwent colonoscopy/flex sigmoidoscopy that did not reveal any stricture and patient was treated for severe constipation and discharged. Patient reports she has been taking Macrobid for several days and only has 1 dose left. Earlier in the week she had hematuria without dysuria, fever, or back pain. Her PMD called her in a prescription of Macrobid without taking a urine sample or examining the patient. Patient states that hematuria has improved since starting the antibiotic - Related Data Previous Rx's Medication Instructions Recorded Last Taken Type Losartan/Hydrochlorothiazide 1 each PO QDAY #30 tablet 05/12/16 Unknown Rx [Losartan-Hctz 50-12.5 mg Tab] metFORMIN [Glucophage] 500 mg PO BID #60 tablet 05/12/16 Unknown Rx Docusate Sodium [Colace] 100 mg PO BID PRN #30 capsule 05/04/20 Unknown Rx Sennosides Tab [Senokot] 17.2 mg PO QHS #30 tablet 05/04/20 Unknown Rx polyethylene glycoL 3350 [Miralax 17 gm PO QDAY #30 powd.pack 05/04/20 Unknown Rx 3350] Allergies Allergy/AdvReac Type Severity Reaction Status Date / Time hydromorphone HCl AdvReac Shortness Verified 05/07/16 12:16 [From Dilaudid] of Breath ED Review of Systems ROS: Stated complaint: ABDOMINAL PAIN Other details as noted in HPI Comment: All other systems reviewed and negative ED Past Medical Hx - Past Medical History Previous Medical History?: Yes Hx Hypertension: Yes Hx Heart Attack/AMI: No Hx Congestive Heart Failure: No Hx Diabetes: Yes Hx Deep Vein Thrombosis: No Hx Liver Disease: No Hx Sickle Cell Disease: No Hx Arthritis: Yes (left knee chronic pain) Hx Headaches / Migraines: Yes Hx Seizures: No Hx Kidney Stones: No Hx Asthma: Yes Hx COPD: No Hx Tuberculosis: No Hx Dementia: No Hx HIV: No Additional medical history: SBO, Colon CA - Surgical History Past Surgical History?: Yes Hx Coronary Stent: No Hx Open Heart Surgery: No Hx Internal Defibrillator: No Hx Breast Surgery: No Additional Surgical History: COLON SURGERY - Social History Smoking Status: Never Smoker - Medications Home Medications: Home Medications Medication Instructions Recorded Confirmed Last Taken Type Losartan/Hydrochlorothiazide 1 each PO QDAY #30 tablet 05/12/16 Unknown Rx [Losartan-Hctz 50-12.5 mg Tab] metFORMIN [Glucophage] 500 mg PO BID #60 tablet 05/12/16 Unknown Rx Docusate Sodium [Colace] 100 mg PO BID PRN #30 capsule 05/04/20 Unknown Rx Sennosides Tab [Senokot] 17.2 mg PO QHS #30 tablet 05/04/20 Unknown Rx polyethylene glycoL 3350 [Miralax 17 gm PO QDAY #30 powd.pack 05/04/20 Unknown Rx 3350] ED Physical Exam - General Limitations: No Limitations - Other Other exam information: General: No acute distress Head: Atraumatic Eyes: normal appearance ENT: Moist mucous membranes Neck: Normal appearance, no midline tenderness Chest: Clear to auscultation bilaterally CV: Regular rate and rhythm Abdomen: Soft, normal bowel sounds, midline vertical surgical scar, nondistended, right upper quadrant tenderness no rebounding Back: Normal inspection Extremity: Normal inspection, full range of motion Neuro: Alert O x 3, no facial asymmetry, speech clear, no gross motor sensory deficit Psych: Appropriate behavior Skin: No rash ED Course Vital Signs 03/21/21 05:00 Temperature 97.8 F Pulse Rate 80 Respiratory 18 Rate Blood Pressure 172/84 O2 Sat by Pulse 98 Oximetry - Consultations Consultation #1: 03/21/21 09:29 Case discussed with hospitalist director Dr. Espana to discussed my plan to admit patient here. We do not have urology adjunct physical education instructor in the ER for consultation, however at this time patient does not require acute urology surgical intervention. Stone is than 5 mm, stones is distal, patient does not have leuk ocytosis, patient is not exhibiting signs of sepsis, septic shock, or renal failure. 03/21/21 09:40 03/21/21 09:[address] Casillas(GI) attempted, response pending. 03/21/21 09:[address] Casillas who reviewed patient's chart and previous work-up. Recommends Fleet enema and Dulcolax ED Medical Decision Making - Lab Data Result diagrams: 03/21/21 06:50 03/21/21 06:50 Lab Results 03/21/21 03/21/21 03/21/21 Range/Units 06:49 06:50 06:50 WBC 9.7 (4.5-11.0) K/mm3 RBC 4.08 (3.65-5.03) M/mm3 Hgb 11.2 (10.1-14.3) gm/dl Hct 34.8 (30.3-42.9) % MCV 85 (79-97) fl MCH 28 (28-32) pg MCHC 32 (30-34) % RDW 15.8 H (13.2-15.2) % Plt Count 312 (140-440) K/mm3 Lymph % (Auto) 6.7 L (13.4-35.0) % [place] % (Auto) 3.8 (0.0-7.3) % Eos % (Auto) 0.2 (0.0-4.3) % Baso % (Auto) 0.3 (0.0-1.8) % Lymph # (Auto) 0.7 L (1.2-5.4) K/mm3 [place] # (Auto) 0.4 (0.0-0.8) K/mm3 Eos # (Auto) 0.0 (0.0-0.4) K/mm3 Baso # (Auto) 0.0 (0.0-0.1) K/mm3 Seg Neutrophils % 89.0 H (40.0-70.0) % Seg Neutrophils # 8.6 H (1.8-7.7) K/mm3 Sodium 134 L (137-145) mmol/L Potassium 4.9 (3.6-5.0) mmol/L Chloride 95.9 L (98-107) mmol/L Carbon Dioxide 23 (22-30) mmol/L Anion Gap 20 mmol/L BUN 14 (7-17) mg/dL Creatinine 0.8 (0.6-1.2) mg/dL Estimated GFR > 60 ml/min BUN/Creatinine Ratio 18 % Glucose 312 H (65-100) mg/dL Calcium 9.6 (8.4-10.2) mg/dL Total Bilirubin 0.20 (0.1-1.2) mg/dL AST 12 (5-40) units/L ALT 12 (7-56) units/L Alkaline Phosphatase 88 (35-129) units/L Troponin T < 0.010 (0.00-0.029) ng/mL Total Protein 7.3 (6.3-8.2) g/dL Albumin 4.4 (3.9-5) g/dL Albumin/Globulin Ratio 1.5 % Lipase 18 (13-60) units/L Urine Color Yellow (Yellow) Urine Turbidity Slightly-cloudy (Clear) Urine pH 5.0 (5.0-7.0) Ur Specific [place] 1.015 (1.003-1.030) Urine Protein <15 mg/dl (Negative) mg/dL Urine Glucose (UA) 150 (Negative) mg/dL Urine Ketones Tr (Negative) mg/dL Urine Blood Lg (Negative) Urine Nitrite Neg (Negative) Urine Bilirubin Neg (Negative) Urine Urobilinogen < 2.0 (<2.0) mg/dL Ur Leukocyte Esterase Neg (Negative) Urine WBC (Auto) 3.0 (0.0-6.0) /HPF Urine RBC (Auto) > 182.0 (0.0-6.0) /HPF U Epithel Cells (Auto) 4.0 (0-13.0) /HPF Urine Bacteria (Auto) 1+ (Negative) /HPF Hyaline Casts 2 /LPF Urine Mucus Few /HPF - Radiology Data Radiology results: report reviewed CT ABDOMEN AND PELVIS WITH CONTRAST HISTORY: R.U.Q. abd pain, constipation, Hx of colon cancer OMNI 300 100ML. COMPARISON: None. TECHNIQUE: CT images of the abdomen and pelvis were obtained following administration of intravenous contrast. All CT scans at this location are performed using CT dose reduction for ALARA by means of automated exposure control. CONTRAST: 100 ml of intravenous contrast administered. FINDINGS: Lungs/bones: Mild atelectasis in the lower lungs Abdomen/pelvis: There is diffuse fatty infiltration the liver the liver is mildly enlarged. Spleen, adrenal glands, pancreas and gallbladder appear normal. Upper GI tract is unremarkable. The appendix appears normal. Postoperative change in the:. Large amount of fecal material and dilatation of the colon level of anastomosis is again seen. The sigmoid colon distally is decompressed. Uterus is enlarged with large hyperdense area centrally could represent large fibroid measuring 4.9 cm. No dominant adenopathy is seen. There is inflammatory change surrounding the right kidney with fluid surrounding the right kidney there is a distal right ureteral stone suggested measuring 3 mm no acute bone findings IMPRESSION: 1. Right hydroureteronephrosis. Inflammatory change within and surrounding the right kidney with distal right ureteral stone measuring 2 to 3 mm with obstruction. Early pyelonephritis cannot be completely excluded. 2. Hepatomegaly with hepatic steatosis. 3. Dilatation of the left distal colon and sigmoid colon with fecal material at the level of anastomosis. Decompression of the distal sigmoid colon. Evaluation with colonoscopy could be performed. - Medical Decision Making 65-year-old female presents to the hospital with abdominal pain and hematuria that has resolved since starting Macrobid. CT confirms ureteral stone with hydronephrosis and constipation. At this time patient does not need emergent urology intervention given lack of fever, leukocytosis, renal failure. Stone is also less than 5 mm and will likely pass spontaneously. GI consulted regarding CT bowel abnormalities. Case reviewed by Dr. Casillas with recommendation to initiate laxatives. He will evaluate patient. Case discussed with hospitalist for admission. Patient treated with pain medication, nausea medication, Pepcid, and Rocephin. Urine culture sent. Critical Care Time: No Critical care attestation.: If time is entered above; I have spent that time in minutes in the direct care of this critically ill patient, excluding procedure time. ED Disposition Clinical Impression: Fecal impaction of colon, Ureteral stone, Hydroureteronephrosis, Nausea & vomiting, Diabetes, UTI (urinary tract infection) Disposition: 02 SHORT TERM HOSPITAL Is pt being admited?: Yes Condition: Stable Instructions: Abdominal Pain (ED), Diabetes Mellitus Type 2 in Adults (ED) Time of Disposition: 09:51 (Dr sidhu)
--- NOTE | 2021-03-21 06:55 | XRay Report ---
CHEST 2 VIEWS INDICATION / CLINICAL INFORMATION: cough. COMPARISON: None available. FINDINGS: SUPPORT DEVICES: None. HEART / MEDIASTINUM: No significant abnormality. LUNGS / PLEURA: No significant pulmonary or pleural abnormality. No pneumothorax. ADDITIONAL FINDINGS: No significant additional findings. IMPRESSION: 1. No acute findings. Signer Name: Basilio Badillo DO Signed: 03/21/2021 6:51 AM Workstation Name: [id number]
--- NOTE | 2021-03-21 06:57 | XRay Report ---
ABDOMEN 2 VIEWS INDICATION / CLINICAL INFORMATION: dyspnea, cough, Nausea and vomiting; No BM x 3 day. COMPARISON: 05/01/2020 FINDINGS: TUBES / LINES: None. BOWEL GAS PATTERN: No significant abnormality. FREE AIR / EXTRALUMINAL GAS: None seen. ADDITIONAL FINDINGS: There is moderate stool retention throughout the colon. CHEST: Visualized chest shows no significant abnormality. IMPRESSION: 1. No objective bowel gas pattern. Moderate stool retention throughout the colon. Signer Name: Basilio Badillo DO Signed: 03/21/2021 6:53 AM Workstation Name: [id number]
[2021-03-21 07:27] LABS: Basophils % (Auto) 0.3 % (0.0-1.8); Eosinophils % (Auto) 0.2 % (0.0-4.3); Hematocrit 34.8 % (30.3-42.9); Hemoglobin 11.2 gm/dl (10.1-14.3); Lymphocytes # (Auto) 0.7 K/mm3 (1.2-5.4); Lymphocytes % (Auto) 6.7 % (13.4-35.0); Mean Corpuscular HGB Conc 32 % (30-34); Mean Corpuscular Volume 85 fl (79-97); Monocytes # (Auto) 0.4 K/mm3 (0.0-0.8); Monocytes % (Auto) 3.8 % (0.0-7.3); Platelet Count 312 K/mm3 (140-440); Red Blood Count 4.08 M/mm3 (3.65-5.03); Red Cell Distribution Width 15.8 % (13.2-15.2)
[2021-03-21 08:01] LABS: Alanine Aminotransferase 12 units/L (7-56); Albumin 4.4 g/dL (3.9-5); BUN/Creatinine Ratio 18; Blood Urea Nitrogen 14 mg/dL (7-17); Calcium 9.6 mg/dL (8.4-10.2); Hemolysis Index 3
[2021-03-21 08:01] LABS: Bacteria,Urine 1+ /HPF (Negative); Bilirubin,Urine NEG (Negative); Blood,Urine LG (Negative); Color,Urine Yellow (Yellow); Hyaline Casts,Urine 2 /LPF; Mucus,Urine FEW /HPF; Protein,Urine <15 mg/dL mg/dL (Negative); Urobilinogen,Urine < 2.0 mg/dL (<2.0)
[2021-03-21 08:06] LABS: RBC,Urine > 182.0 /HPF (0.0-6.0)
--- NOTE | 2021-03-21 09:12 | Cat Scan Report ---
CT ABDOMEN AND PELVIS WITH CONTRAST HISTORY: R.U.Q. abd pain, constipation, Hx of colon cancer OMNI 300 100ML. COMPARISON: None. TECHNIQUE: CT images of the abdomen and pelvis were obtained following administration of intravenous contrast. All CT scans at this location are performed using CT dose reduction for ALARA by means of automated exposure control. CONTRAST: 100 ml of intravenous contrast administered. FINDINGS: Lungs/bones: Mild atelectasis in the lower lungs Abdomen/pelvis: There is diffuse fatty infiltration the liver the liver is mildly enlarged. Spleen, adrenal glands, pancreas and gallbladder appear normal. Upper GI tract is unremarkable. The appendix appears normal. Postoperative change in the:. Large amount of fecal material and dilatation of the co renard level of anastomosis is again seen. The sigmoid colon distally is decompressed. Uterus is enlarge d with large hyperdense area centrally could represent large fibroid measuring 4.9 cm. No dominant ad enopathy is seen. There is inflammatory change surrounding the right kidney with fluid surrounding the right kidney the re is a distal right ureteral stone suggested measuring 3 mm no acute bone findings IMPRESSION: 1. Right hydroureteronephrosis. Inflammatory change within and surrounding the right kidney with dist al right ureteral stone measuring 2 to 3 mm with obstruction. Early pyelonephritis cannot be complete ly excluded. 2. Hepatomegaly with hepatic steatosis. 3. Dilatation of the left distal colon and sigmoid colon with fecal material at the level of anastomo sis. Decompression of the distal sigmoid colon. Evaluation with colonoscopy could be performed. Signer Name: Randall Frost MD Signed: 03/21/2021 9:08 AM Workstation Name: [id number]
[2021-03-21] MEDS ORDERED: cefTRIAXone/NS 1 GM/50 ML 1 GM/50 ML BAG IV ONE (09:31)
[2021-03-21] MEDS ORDERED: FLEET ENEMA PR ONE (09:46)
--- NOTE | 2021-03-21 10:00 | History and Physical Report ---
History of Present Illness Date of examination: 03/21/21 Date of admission: 03/21/2021 Chief complaint: Abdominal pain History of present illness: HPI: 65-year-old female with past medical history of diabetes, hypertension, colon cancer status post resection presenting to our facility with complaint of abdominal pain, nausea, vomiting x2 days. Patient states that the pain is crampy and localized to her right upper quadrant. It has been constant. She states that she has not had a bowel movement in 2 days. Patient also had hematuria. She was seen by her primary care physician who prescribed her Macrobid as they had suspected urinary tract infection. She denies any fevers but does state that she has some chills. Remainder of ROS negative except for stated above CT abdomen and pelvis demonstrated semisolid stool throughout the colon. There is also 2 to 3 mm stone identified in distal right ureter. GI consulted on admission. Per GI, patient had followed up with Dr. Merchant in June of this year. Patient had not obtain a repeat CT scan at the time when it was recommended. Patient also got her prescription for Linzess at the time to help with significant chronic constipation that she had reported. She takes MiraLAX for her symptoms. PMHx:diabetes, hypertension, colon cancer status post resection PSHx:colon cancer status post resection FHx:Reviewed non contributory SHx: Tobacco use- denies ETOH Use- denies Recreational Drug Use-denies Past History Past Medical History: hypertension, other (colon cancer) Past Surgical History: Other (colon resection) Medications and Allergies Allergies Allergy/AdvReac Type Severity Reaction Status Date / Time hydromorphone HCl AdvReac Shortness Verified 05/07/16 12:16 [From Dilaudid] of Breath Home Medications Medication Instructions Recorded Confirmed Last Taken Type Losartan/Hydrochlorothiazide 1 each PO QDAY #30 tablet 05/12/16 Unknown Rx [Losartan-Hctz 50-12.5 mg Tab] metFORMIN [Glucophage] 500 mg PO BID #60 tablet 05/12/16 Unknown Rx Docusate Sodium [Colace] 100 mg PO BID PRN #30 capsule 05/04/20 Unknown Rx Sennosides Tab [Senokot] 17.2 mg PO QHS #30 tablet 05/04/20 Unknown Rx polyethylene glycoL 3350 [Miralax 17 gm PO QDAY #30 powd.pack 05/04/20 Unknown Rx 3350] Active Meds: Active Medications Bisacodyl (Bisacodyl 5 Mg Tab) 10 mg PO ONCE NR Stop: 03/21/21 13:00 Ceftriaxone Sodium (Rocephin/Ns 1 Gm/50 Ml) 1 gm in 50 mls @ 100 mls/hr IV ONCE ONE; Protocol Stop: 03/21/21 10:00 Last Admin: 03/21/21 09:44 Dose: 100 mls/hr Documented by: Review of Systems All systems: negative Gastrointestinal: abdominal pain, nausea, vomiting Exam - Physical Exam Narrative exam: Physical Exam: VITAL SIGNS: Reviewed. GENERAL: The patient appears normally developed, Vital signs as documented. HEAD: No signs of head trauma. EYES: Pupils are equal. Extraocular motions intact. EARS: Hearing grossly intact. MOUTH: Oropharynx is normal. NECK: No adenopathy, no JVD. CHEST: Chest with clear breath sounds bilaterally. No wheezes, rales, or rhonchi. CARDIAC: Regular rate and rhythm. S1 and S2, without murmurs, gallops, or rubs. VASCULAR: No Edema. Peripheral pulses normal and equal in all extremities. ABDOMEN: mild tenderness to palpation in right upper quadrant. No rebound or guarding, and no masses palpated. Bowel Sounds normal. MUSCULOSKELETAL: Good range of motion of all major joints. Extremities without clubbing, cyanosis or edema. NEUROLOGIC EXAM: Alert and oriented x 4. no focal sensory or strength deficits. PSYCHIATRIC: Mood normal. SKIN: detail exam as documented in skin assessment - Constitutional Vitals: Temp Pulse Resp BP Pulse Ox 97.8 F 80 18 172/84 98 03/21/21 05:00 03/21/21 05:00 03/21/21 05:00 03/21/21 05:00 03/21/21 05:00 HEART Score - HEART Score Troponin: Troponin T < 0.010 ng/mL (0.00-0.029) 03/21/21 06:50 Results - Labs CBC & Chem 7: 03/21/21 06:50 03/21/21 06:50 Labs: Laboratory Last Values WBC 9.7 K/mm3 (4.5-11.0) 03/21/21 06:50 RBC 4.08 M/mm3 (3.65-5.03) 03/21/21 06:50 Hgb 11.2 gm/dl (10.1-14.3) 03/21/21 06:50 Hct 34.8 % (30.3-42.9) 03/21/21 06:50 MCV 85 fl (79-97) 03/21/21 06:50 MCH 28 pg (28-32) 03/21/21 06:50 MCHC 32 % (30-34) 03/21/21 06:50 RDW 15.8 % (13.2-15.2) H 03/21/21 06:50 Plt Count 312 K/mm3 (140-440) 03/21/21 06:50 Lymph % (Auto) 6.7 % (13.4-35.0) L 03/21/21 06:50 [place] % (Auto) 3.8 % (0.0-7.3) 03/21/21 06:50 Eos % (Auto) 0.2 % (0.0-4.3) 03/21/21 06:50 Baso % (Auto) 0.3 % (0.0-1.8) 03/21/21 06:50 Lymph # (Auto) 0.7 K/mm3 (1.2-5.4) L 03/21/21 06:50 [place] # (Auto) 0.4 K/mm3 (0.0-0.8) 03/21/21 06:50 Eos # (Auto) 0.0 K/mm3 (0.0-0.4) 03/21/21 06:50 Baso # (Auto) 0.0 K/mm3 (0.0-0.1) 03/21/21 06:50 Seg Neutrophils % 89.0 % (40.0-70.0) H 03/21/21 06:50 Seg Neutrophils # 8.6 K/mm3 (1.8-7.7) H 03/21/21 06:50 Sodium 134 mmol/L (137-145) L 03/21/21 06:50 Potassium 4.9 mmol/L (3.6-5.0) 03/21/21 06:50 Chloride 95.9 mmol/L (98-107) L 03/21/21 06:50 Carbon Dioxide 23 mmol/L (22-30) 03/21/21 06:50 Anion Gap 20 mmol/L 03/21/21 06:50 BUN 14 mg/dL (7-17) 03/21/21 06:50 Creatinine 0.8 mg/dL (0.6-1.2) 03/21/21 06:50 Estimated GFR > 60 ml/min 03/21/21 06:50 BUN/Creatinine Ratio 18 % 03/21/21 06:50 Glucose 312 mg/dL (65-100) H 03/21/21 06:50 Calcium 9.6 mg/dL (8.4-10.2) 03/21/21 06:50 Total Bilirubin 0.20 mg/dL (0.1-1.2) 03/21/21 06:50 AST 12 units/L (5-40) 03/21/21 06:50 ALT 12 units/L (7-56) 03/21/21 06:50 Alkaline Phosphatase 88 units/L (35-129) 03/21/21 06:50 Troponin T < 0.010 ng/mL (0.00-0.029) 03/21/21 06:50 Total Protein 7.3 g/dL (6.3-8.2) 03/21/21 06:50 Albumin 4.4 g/dL (3.9-5) 03/21/21 06:50 Albumin/Globulin Ratio 1.5 % 03/21/21 06:50 Lipase 18 units/L (13-60) 03/21/21 06:50 Urine Color Yellow (Yellow) 03/21/21 06:49 Urine Turbidity Slightly-cloudy (Clear) 03/21/21 06:49 Urine pH 5.0 (5.0-7.0) 03/21/21 06:49 Ur Specific [place] 1.015 (1.003-1.030) 03/21/21 06:49 Urine Protein <15 mg/dl mg/dL (Negative) 03/21/21 06:49 Urine Glucose (UA) 150 mg/dL (Negative) 03/21/21 06:49 Urine Ketones Tr mg/dL (Negative) 03/21/21 06:49 Urine Blood Lg (Negative) 03/21/21 06:49 Urine Nitrite Neg (Negative) 03/21/21 06:49 Urine Bilirubin Neg (Negative) 03/21/21 06:49 Urine Urobilinogen < 2.0 mg/dL (<2.0) 03/21/21 06:49 Ur Leukocyte Esterase Neg (Negative) 03/21/21 06:49 Urine WBC (Auto) 3.0 /HPF (0.0-6.0) 03/21/21 06:49 Urine RBC (Auto) > 182.0 /HPF (0.0-6.0) 03/21/21 06:49 U Epithel Cells (Auto) 4.0 /HPF (0-13.0) 03/21/21 06:49 Urine Bacteria (Auto) 1+ /HPF (Negative) 03/21/21 06:49 Hyaline Casts 2 /LPF 03/21/21 06:49 Urine Mucus Few /HPF 03/21/21 06:49 Assessment and Plan Assessment and plan: #Abdominal pain Patient has a history of chronic constipation for which she had done a trial of Linzess. She also intermittently takes MiraLAX as an outpatient New symptoms x2 days. Has a history of colonoscopy this year in April. Patient had normal terminal ileum but colon was difficult to visualize due to incomplete prep. -CTAP: Dilation of left distal colon and sigmoid colon with fecal matter. Decompression of distal sigmoid colon. Please refer to official radiology report Gastroenterology consulted, they recommend enema/Dulcolax for now. Doubt true obstruction. May be pseudoobstruction from anastomosis point from prior colon surgery. Do not plan to repeat colonoscopy Clear liquid diet for now #Nephrolithiasis CTAP: Right hydroureteronephrosis. Inflammatory changes surrounding the right kidney with right ureteral stone measuring 2 to 3 mm obstruction. -conservative management for now, IVF. -pain control with toradol/morphine #Hydronephrosis - due to stone likely #Fecal impaction -chronic constipatoin - laxatives for now - follow GI recs #Type 2 Diabetes with hyperglycemia - lantus/SSI - accuchecks ac/hs #History of Colon Cancer s/p Resection - noted #Hypertension - resume home losartan #Hepatosteatosis -Outpatient follow-up with GI/hepatology Dispo: admit to med/surg bed. Likely d/c tomorrow.
--- NOTE | 2021-03-21 10:20 | Gastroenterology Consultation ---
History of Present Illness - Reason for Consult Consult date: 03/21/[address] Requesting physician: HEIDY ALDANA - History of Present Illness 65-year-old female with a past medical history of diabetes, hypertension, colon cancer status post resection, presents to the hospital with complaints of abdominal pain, nausea, vomiting. Patient is he started having right upper quadrant crampy dull pain 2 days ago then resolved after drinking water. Pain returned this morning and more constant and severe. Pain is worse with palpation. No alleviating or aggravating factors reported. Last bowel movement was 2 days ago. Patient was here in April for suspected obstruction with a large stool ball in the sigmoid secondary to a colonic stricture based on CT report -- see my report from colonoscopy at the time, copied below -- no lesion seen Patient reports she has been taking Macrobid for several days and only has 1 dose left. Earlier in the week she had hematuria without dysuria, fever, or back pain. Her PMD called her in a prescription of Macrobid without taking a urine sample or examining the patient. Patient states that hematuria has improved since starting the antibiotic She did follow-up once with Dr. Merchant in June of this year after the above e pisode in April, he recommended repeat CAT scan but I do not see results in our system and she didn't return again after that she reports she did not get the CAT scan done He also wrote prescription for Linzess to help with her significant chronic constipation she reports she ran out of and has not been taking it for a long time She reports taking MiraLAX periodically but no stool softeners or laxatives routinely Operative Report: DOS: 05/03/20 SURGEON: Delroy Casillas MD COLONOSCOPY REPORT PREOPERATIVE AND POSTOPERATIVE DIAGNOSIS: Abdominal pain, abnormal CAT scan DESCRIPTION OF PROCEDURE: The colonoscope was passed to the terminal ileum as identified by the ileal tissue. Scope was carefully withdrawn. Retroflexion was performed in the rectum. At the end of procedure, the scope was cleaned using normal technique. Vital signs monitored continuously throughout. SEDATION: Provided by [facility]. Quality of the prep was poor COMPLICATIONS: None. ESTIMATED BLOOD LOSS: None FINDINGS: * Normal terminal ileum * Views of the colon were limited due to semisolid stool scattered throughout the colon, however no gross lesions were identified * There is a large amount of soft but solid stool in the sigmoid colon. This was able to be passed with mild difficulty with the colonoscope. The area was carefully examined and no obstruction and no stenosis were visualized RECOMMENDATIONS: * Patient does not have an obstruction nor severe stenosis on today's colonoscopy. Therefore, we will give the patient a colon cleanse to clean out the residual stool, and in the meantime I will place her on a full liquid diet. If she feels well with the cleanse then she may be discharged tomorrow with daily stool softeners and daily MiraLAX to prevent hardening of the stool, and she should follow-up as an outpatient for consideration of repeat colonoscopy after a complete colon cleanse to ensure no missed underlying lesions in the sigmoid colon Obtained/updated/reviewed patient's current medications Past Medical History: other (Colon cancer, DM 2, HTN, migraines, SBO) Past Surgical History: Other (Colon resection) Social history: , lives with family, full code. denies: smoking, alcohol abuse, prescription drug abuse, IV drug use Family history: hypertension Medications and Allergies Allergies Allergy/AdvReac Type Severity Reaction Status Date / Time hydromorphone HCl AdvReac Shortness Verified 05/07/16 12:16 [From Dilaudid] of Breath Home Medications Medication Instructions Recorded Confirmed Last Taken Type Losartan/Hydrochlorothiazide 1 each PO QDAY #30 tablet 05/12/16 Unknown Rx [Losartan-Hctz 50-12.5 mg Tab] metFORMIN [Glucophage] 500 mg PO BID #60 tablet 05/12/16 Unknown Rx Docusate Sodium [Colace] 100 mg PO BID PRN #30 capsule 05/04/20 Unknown Rx Sennosides Tab [Senokot] 17.2 mg PO QHS #30 tablet 05/04/20 Unknown Rx polyethylene glycoL 3350 [Miralax 17 gm PO QDAY #30 powd.pack 05/04/20 Unknown Rx 3350] Active Meds: Active Medications Bisacodyl (Bisacodyl 5 Mg Tab) 10 mg PO ONCE NR Stop: 03/21/21 13:00 Review of Systems - Review of Systems All systems: negative (10 Systems reviewed and negative except as mentioned above in the history of present illness) Exam - Constitutional Vital Signs: Temp Pulse Resp BP Pulse Ox 97.8 F 80 18 172/84 98 03/21/21 05:00 03/21/21 05:00 03/21/21 05:00 03/21/21 05:00 03/21/21 05:00 General appearance: no acute distress - EENT Eyes: EOM intact ENT: hearing intact - Neck Neck: supple - Respiratory Respiratory effort: normal - Cardiovascular Rhythm: regular - Gastrointestinal General gastrointestinal: Present: other (mild distension, negative rebound, decreased BS, TTP diffuse) - Integumentary Integumentary: Present: dry - Musculoskeletal Musculoskeletal: normal - Neurologic Neurological: alert and oriented x3 - Psychiatric Psychiatric: appropriate mood/affect - Labs CBC & Chem 7: 03/21/21 06:50 03/21/21 06:50 Lab Results: Laboratory Results - last 24 hr 03/21/21 03/21/21 03/21/21 06:49 06:50 06:50 WBC 9.7 RBC 4.08 Hgb 11.2 Hct 34.8 MCV 85 MCH 28 MCHC 32 RDW 15.8 H Plt Count 312 Lymph % (Auto) 6.7 L [place] % (Auto) 3.8 Eos % (Auto) 0.2 Baso % (Auto) 0.3 Lymph # (Auto) 0.7 L [place] # (Auto) 0.4 Eos # (Auto) 0.0 Baso # (Auto) 0.0 Seg Neutrophils % 89.0 H Seg Neutrophils # 8.6 H Sodium 134 L Potassium 4.9 Chloride 95.9 L Carbon Dioxide 23 Anion Gap 20 BUN 14 Creatinine 0.8 Estimated GFR > 60 BUN/Creatinine Ratio 18 Glucose 312 H Calcium 9.6 Total Bilirubin 0.20 AST 12 ALT 12 Alkaline Phosphatase 88 Troponin T < 0.010 Total Protein 7.3 Albumin 4.4 Albumin/Globulin Ratio 1.5 Lipase 18 Urine Color Yellow Urine Turbidity Slightly-cloudy Urine pH 5.0 Ur Specific [place] 1.015 Urine Protein <15 mg/dl Urine Glucose (UA) 150 Urine Ketones Tr Urine Blood Lg Urine Nitrite Neg Urine Bilirubin Neg Urine Urobilinogen < 2.0 Ur Leukocyte Esterase Neg Urine WBC (Auto) 3.0 Urine RBC (Auto) > 182.0 U Epithel Cells (Auto) 4.0 Urine Bacteria (Auto) 1+ Hyaline Casts 2 Urine Mucus Few Assessment and Plan No evidence for obstruction on recent colonoscopy in April of this year; though the prep was limited I was able to get to the terminal ileum during the procedure Therefore true obstruction is less likely, more likely patient with persistent severe constipation at the level of the anastomosis causing pseudoobstruction, and patient has not been taking outpatient bowel regimen Therefore recommend enemas and Dulcolax now If it does not significantly relieve symptoms recommend continued enemas and give the patient GoLYTELY to drink slowly to relieve her symptoms No plan for repeat colonoscopy at this juncture - Patient Problems (1) Abnormal computed tomography of large intestine Current Visit: Yes Status: Acute (2) Nausea & vomiting Current Visit: Yes Status: Acute (3) Fecal impaction of colon Current Visit: Yes Status: Chronic (4) Abdominal pain Current Visit: No Status: Acute Qualifiers: Abdominal location: left upper quadrant Qualified Code(s): R10.12 - Left upper quadrant pain (5) History of colon cancer Current Visit: No Status: Resolved
[2021-03-21] MEDS ORDERED: FLEET ENEMA PR NR (14:00)
[2021-03-21] MEDS ORDERED: MORPHINE 2 MG/1 ML INJ IV PRN (16:00)
[2021-03-21] MEDS ORDERED: SODIUM CHLORIDE 0.9% 1000 ML 1,000 ML IV SCH (16:00)
[2021-03-21] MEDS ORDERED: DEXTROSE 50% IN WATER (25GM) 50 ML SYRINGE IV PRN (16:00)
[2021-03-21] MEDS ORDERED: ACETAMINOPHEN 325 MG TAB PO PRN (16:00)
[2021-03-21] MEDS ORDERED: ONDANSETRON 4 MG/2 ML INJ IV PRN (16:00)
[2021-03-21] MEDS ORDERED: INSULIN GLARGINE 100 UNITS/ML SUB-Q SCH (22:00)
[2021-03-21] MEDS ORDERED: POLYETHYLENE GLYCOL 3350 17 GM POWDER PO PRN (22:00)
[2021-03-21] MEDS: INSULIN LISPRO 100 UNIT/ML SUB-Q SCH ×2 (22:20→23:33)
--- NOTE | 2021-03-22 07:40 | Progress Note ---
Assessment and Plan Assessment and plan: #Abdominal pain Patient has a history of chronic constipation for which she had done a trial of Linzess. She also intermittently takes MiraLAX as an outpatient New symptoms x2 days. Has a history of colonoscopy this year in April. Patient had normal terminal ileum but colon was difficult to visualize due to incomplete prep. -CTAP: Dilation of left distal colon and sigmoid colon with fecal matter. Decompression of distal sigmoid colon. Please refer to official radiology report Gastroenterology consulted, they recommend enema/Dulcolax for now. Doubt true obstruction. May be pseudoobstruction from anastomosis point from prior colon surgery. Do not plan to repeat colonoscopy Clear liquid diet for now #Nephrolithiasis CTAP: Right hydroureteronephrosis. Inflammatory changes surrounding the right kidney with right ureteral stone measuring 2 to 3 mm obstruction. -conservative management for now, IVF. -pain control with toradol/morphine #Hydronephrosis - due to stone likely #Fecal impaction -chronic constipatoin - laxatives for now - follow GI recs #Type 2 Diabetes with hyperglycemia - lantus/SSI - accuchecks ac/hs #History of Colon Cancer s/p Resection - noted #Hypertension - resume home losartan #Hepatosteatosis -Outpatient follow-up with GI/hepatology Dispo: admit to med/surg bed. Likely d/c tomorrow. Hospitalist Physical - Physical exam Narrative exam: Physical Exam: VITAL SIGNS: Reviewed. GENERAL: The patient appears normally developed, Vital signs as documented. HEAD: No signs of head trauma. EYES: Pupils are equal. Extraocular motions intact. EARS: Hearing grossly intact. MOUTH: Oropharynx is normal. NECK: No adenopathy, no JVD. CHEST: Chest with clear breath sounds bilaterally. No wheezes, rales, or rhonchi. CARDIAC: Regular rate and rhythm. S1 and S2, without murmurs, gallops, or rubs. VASCULAR: No Edema. Peripheral pulses normal and equal in all extremities. ABDOMEN: mild tenderness to palpation in right upper quadrant. No rebound or guarding, and no masses palpated. Bowel Sounds normal. MUSCULOSKELETAL: Good range of motion of all major joints. Extremities without clubbing, cyanosis or edema. NEUROLOGIC EXAM: Alert and oriented x 4. no focal sensory or strength deficits. PSYCHIATRIC: Mood normal. SKIN: detail exam as documented in skin assessment - Constitutional Vitals: Temp Pulse Resp BP Pulse Ox 97.8 F 80 16 112/56 96 03/22/21 04:33 03/22/21 04:33 03/22/21 04:33 03/22/21 04:33 03/22/21 04:33 HEART Score - HEART Score Troponin: Troponin T < 0.010 ng/mL (0.00-0.029) 03/21/21 06:50 Results - Labs CBC & Chem 7: 03/21/21 06:50 03/21/21 06:50 Labs: Laboratory Last Values WBC 9.7 K/mm3 (4.5-11.0) 03/21/21 06:50 RBC 4.08 M/mm3 (3.65-5.03) 03/21/21 06:50 Hgb 11.2 gm/dl (10.1-14.3) 03/21/21 06:50 Hct 34.8 % (30.3-42.9) 03/21/21 06:50 MCV 85 fl (79-97) 03/21/21 06:50 MCH 28 pg (28-32) 03/21/21 06:50 MCHC 32 % (30-34) 03/21/21 06:50 RDW 15.8 % (13.2-15.2) H 03/21/21 06:50 Plt Count 312 K/mm3 (140-440) 03/21/21 06:50 Lymph % (Auto) 6.7 % (13.4-35.0) L 03/21/21 06:50 [place] % (Auto) 3.8 % (0.0-7.3) 03/21/21 06:50 Eos % (Auto) 0.2 % (0.0-4.3) 03/21/21 06:50 Baso % (Auto) 0.3 % (0.0-1.8) 03/21/21 06:50 Lymph # (Auto) 0.7 K/mm3 (1.2-5.4) L 03/21/21 06:50 [place] # (Auto) 0.4 K/mm3 (0.0-0.8) 03/21/21 06:50 Eos # (Auto) 0.0 K/mm3 (0.0-0.4) 03/21/21 06:50 Baso # (Auto) 0.0 K/mm3 (0.0-0.1) 03/21/21 06:50 Seg Neutrophils % 89.0 % (40.0-70.0) H 03/21/21 06:50 Seg Neutrophils # 8.6 K/mm3 (1.8-7.7) H 03/21/21 06:50 Sodium 134 mmol/L (137-145) L 03/21/21 06:50 Potassium 4.9 mmol/L (3.6-5.0) 03/21/21 06:50 Chloride 95.9 mmol/L (98-107) L 03/21/21 06:50 Carbon Dioxide 23 mmol/L (22-30) 03/21/21 06:50 Anion Gap 20 mmol/L 03/21/21 06:50 BUN 14 mg/dL (7-17) 03/21/21 06:50 Creatinine 0.8 mg/dL (0.6-1.2) 03/21/21 06:50 Estimated GFR > 60 ml/min 03/21/21 06:50 BUN/Creatinine Ratio 18 % 03/21/21 06:50 Glucose 312 mg/dL (65-100) H 03/21/21 06:50 POC Glucose 241 mg/dL (70-105) H 03/21/21 22:12 Calcium 9.6 mg/dL (8.4-10.2) 03/21/21 06:50 Total Bilirubin 0.20 mg/dL (0.1-1.2) 03/21/21 06:50 AST 12 units/L (5-40) 03/21/21 06:50 ALT 12 units/L (7-56) 03/21/21 06:50 Alkaline Phosphatase 88 units/L (35-129) 03/21/21 06:50 Troponin T < 0.010 ng/mL (0.00-0.029) 03/21/21 06:50 Total Protein 7.3 g/dL (6.3-8.2) 03/21/21 06:50 Albumin 4.4 g/dL (3.9-5) 03/21/21 06:50 Albumin/Globulin Ratio 1.5 % 03/21/21 06:50 Lipase 18 units/L (13-60) 03/21/21 06:50 Urine Color Yellow (Yellow) 03/21/21 06:49 Urine Turbidity Slightly-cloudy (Clear) 03/21/21 06:49 Urine pH 5.0 (5.0-7.0) 03/21/21 06:49 Ur Specific [place] 1.015 (1.003-1.030) 03/21/21 06:49 Urine Protein <15 mg/dl mg/dL (Negative) 03/21/21 06:49 Urine Glucose (UA) 150 mg/dL (Negative) 03/21/21 06:49 Urine Ketones Tr mg/dL (Negative) 03/21/21 06:49 Urine Blood Lg (Negative) 03/21/21 06:49 Urine Nitrite Neg (Negative) 03/21/21 06:49 Urine Bilirubin Neg (Negative) 03/21/21 06:49 Urine Urobilinogen < 2.0 mg/dL (<2.0) 03/21/21 06:49 Ur Leukocyte Esterase Neg (Negative) 03/21/21 06:49 Urine WBC (Auto) 3.0 /HPF (0.0-6.0) 03/21/21 06:49 Urine RBC (Auto) > 182.0 /HPF (0.0-6.0) 03/21/21 06:49 U Epithel Cells (Auto) 4.0 /HPF (0-13.0) 03/21/21 06:49 Urine Bacteria (Auto) 1+ /HPF (Negative) 03/21/21 06:49 Hyaline Casts 2 /LPF 03/21/21 06:49 Urine Mucus Few /HPF 03/21/21 06:49 Mercedes/IV: Voiding Method Toilet Active Medications - Current Medications Current Medications: Generic Name Dose Route Start Last Admin Trade Name Freq PRN Reason Stop Dose Admin Acetaminophen 650 mg 03/21/21 16:00 Acetaminophen 325 Mg Tab PO Q4H PRN Pain MILD(1-3)/Fever >100.5/BIGGS Bisacodyl 10 mg 03/22/21 10:00 Bisacodyl 10 Mg Rect Supp [place] QDAY PRN Constipation Dextrose 50 ml 03/21/21 16:00 Dextrose 50% In Water (25gm) 50 Ml Syringe IV Q30MIN PRN Hypoglycemia Protocol Sodium Chloride 1,000 mls @ 150 mls/hr 03/21/21 16:00 03/22/21 05:43 Nacl 0.9% 1000 Ml IV 150 mls/hr DIRECT DAYNA Administration Insulin Glargine 10 units 03/21/21 22:00 03/21/21 23:33 Insulin Glargine 100 Units/Ml SUB-Q 10 units QHS DAYNA Administration Insulin Human Lispro 0 unit 03/21/21 16:30 03/21/21 23:33 Insulin Lispro 100 Unit/Ml SUB-Q 3 unit ACHS DAYNA Administration Protocol Morphine Sulfate 2 mg 03/21/21 16:00 03/21/21 23:34 Morphine 2 Mg/1 Ml Inj IV 2 mg Q4H PRN Administration Pain, Moderate (4-6) Ondansetron HCl 4 mg 03/21/21 16:00 Ondansetron 4 Mg/2 Ml Inj IV Q8H PRN Nausea And Vomiting Polyethylene Glycol 17 gm 03/21/21 22:00 Polyethylene Glycol 3350 17 Gm Powder PO BID PRN Constipation Sodium Chloride 10 ml 03/21/21 16:00 03/21/21 23:34 Sodium Chloride 0.9% 10 Ml Flush Syringe IV 10 ml BID DAYNA Administration Sodium Chloride 10 ml 03/21/21 16:00 Sodium Chloride 0.9% 10 Ml Flush Syringe IV PRN PRN LINE FLUSH
[2021-03-22] MEDS: INSULIN LISPRO 100 UNIT/ML SUB-Q SCH ×2 (09:29→12:19)
--- NOTE | 2021-03-22 11:28 | Progress Note ---
Assessment and Plan 1. Right-sided abdominal pain -likely related to kidney stone obstructing right ureter and perhaps not related to constipation. Symptoms have resolved, indicating that stone may well have passed. -Defer management to hospitalist. 2. Constipation -patient has chronic constipation though mild with bowel movements every other day or so. Discussed taking MiraLAX on a daily basis instead of a every other day basis. No further GI recommendations. We will sign off. Subjective Date of service: 03/22/21 Interval history: Patient doing well. No abdominal pain. She did have a bowel movement after an enema. Objective - Constitutional Vitals: Vital Signs - 12hr 03/22/21 03/22/21 00:58 04:33 Temperature 97.8 F Pulse Rate 80 Respiratory 18 16 Rate Blood Pressure 112/56 O2 Sat by Pulse 98 96 Oximetry General appearance: Present: no acute distress - EENT Eyes: PERRL, EOM intact ENT: hearing intact - Respiratory Respiratory effort: normal Respiratory: bilateral: CTA - Cardiovascular Rhythm: regular Heart Sounds: Present: S1 & S2 - Gastrointestinal General gastrointestinal: Present: soft, non-tender - Labs CBC & Chem 7: 03/21/21 06:50 03/21/21 06:50 Labs: Abnormal lab results 03/21/21 03/21/21 03/22/21 Range/Units 20:27 22:12 08:11 POC Glucose 187 H 241 H 210 H (70-105) mg/dL 03/22/21 Range/Units 10:57 POC Glucose 262 H (70-105) mg/dL Medications & Allergies - Medications Allergies/Adverse Reactions: Allergies hydromorphone HCl [From Dilaudid] Adverse Reaction (Verified 05/07/16 12:16) Shortness of Breath Home Medications: Home Medications Medication Instructions Recorded Confirmed Last Taken Type Losartan/Hydrochlorothiazide 1 each PO QDAY #30 tablet 05/12/16 03/22/21 03/20/21 10:00 Rx [Losartan-Hctz 50-12.5 mg Tab] metFORMIN [Glucophage] 500 mg PO BID #60 tablet 05/12/16 03/22/21 03/20/21 10:00 Rx Docusate Sodium [Colace] 100 mg PO BID PRN #30 capsule 05/04/20 03/22/21 Unknown Rx Sennosides Tab [Senokot] 17.2 mg PO QHS #30 tablet 05/04/20 03/22/21 Unknown Rx polyethylene glycoL 3350 [Miralax 17 gm PO QDAY #30 powd.pack 05/04/20 03/22/21 Unknown Rx 3350] Active Medications: Generic Name Dose Route Start Last Admin Trade Name Freq PRN Reason Stop Dose Admin Acetaminophen 650 mg 03/21/21 16:00 Acetaminophen 325 Mg Tab PO Q4H PRN Pain MILD(1-3)/Fever >100.5/BIGGS Bisacodyl 10 mg 03/22/21 10:00 Bisacodyl 10 Mg Rect Supp [place] QDAY PRN Constipation Dextrose 50 ml 03/21/21 16:00 Dextrose 50% In Water (25gm) 50 Ml Syringe IV Q30MIN PRN Hypoglycemia Protocol Sodium Chloride 1,000 mls @ 150 mls/hr 03/21/21 16:00 03/22/21 05:43 Nacl 0.9% 1000 Ml IV 150 mls/hr DIRECT DAYNA Administration Insulin Glargine 10 units 03/21/21 22:00 03/21/21 23:33 Insulin Glargine 100 Units/Ml SUB-Q 10 units QHS DAYNA Administration Insulin Human Lispro 0 unit 03/21/21 16:30 03/22/21 09:29 Insulin Lispro 100 Unit/Ml SUB-Q 3 unit ACHS ADYNA Administration Protocol Morphine Sulfate 2 mg 03/21/21 16:00 03/21/21 23:34 Morphine 2 Mg/1 Ml Inj IV 2 mg Q4H PRN Administration Pain, Moderate (4-6) Ondansetron HCl 4 mg 03/21/21 16:00 Ondansetron 4 Mg/2 Ml Inj IV Q8H PRN Nausea And Vomiting Polyethylene Glycol 17 gm 03/21/21 22:00 Polyethylene Glycol 3350 17 Gm Powder PO BID PRN Constipation Sodium Chloride 10 ml 03/21/21 16:00 03/21/21 23:34 Sodium Chloride 0.9% 10 Ml Flush Syringe IV 10 ml BID DAYNA Administration Sodium Chloride 10 ml 03/21/21 16:00 Sodium Chloride 0.9% 10 Ml Flush Syringe IV PRN PRN LINE FLUSH HEART Score - HEART Score Troponin: Troponin T < 0.010 ng/mL (0.00-0.029) 03/21/21 06:50
--- NOTE | 2021-03-22 12:59 | Discharge Summary ---
Providers - Providers Date of Admission: 03/21/21 09:52 Date of discharge: 03/22/21 Attending physician: MICHAEL LOVELACE MD 03/21/21 09:43 Consult to Physician [CONS] Urgent Comment: Consulting Provider: GRANT CAMPA Physician Instructions: Reason For Exam: constipation, bowel distended, decompressed colon Primary care physician: JULIEN BLUE Hospitalization Reason for admission: abdominal pain Condition: Fair Hospital course: HPI: 65-year-old female with past medical history of diabetes, hypertension, colon cancer status post resection presenting to our facility with complaint of abdominal pain, nausea, vomiting x2 days. Patient states that the pain is crampy and localized to her right upper quadrant. It has been constant. She states that she has not had a bowel movement in 2 days. Patient also had hematuria. She was seen by her primary care physician who prescribed her Macrobid as they had suspected urinary tract infection. She denies any fevers but does state that she has some chills. Remainder of ROS negative except for stated above CT abdomen and pelvis demonstrated semisolid stool throughout the colon. There is also 2 to 3 mm stone identified in distal right ureter. GI consulted on admission. Per GI, patient had followed up with Dr. Merchant in June of this year. Patient had not obtain a repeat CT scan at the time when it was recommended. Patient also got her prescription for Linzess at the time to help with significant chronic constipation that she had reported. She takes MiraLAX for her symptoms. Hospital Course: Admitted for abdominal pain likely driven by nephrolithiaisis. After adequate hydration and pain control, patient is symptom free this AM. Patient likely had stone pass overnight. patient also endorsed a bowel movement. She has been dealing with chroinc constipation and follows outpatient with Dr. Merchant. She was advised to follow up with her primary care doctor and GI doctor as an outpatient. She will be discharge home with a prescription for miralax. Assessment and Plan: #Abdominal pain Patient has a history of chronic constipation for which she had done a trial of Linzess. She also intermittently takes MiraLAX as an outpatient New symptoms x2 days. Has a history of colonoscopy this year in April. Patient had normal terminal ileum but colon was difficult to visualize due to incomplete prep. -CTAP: Dilation of left distal colon and sigmoid colon with fecal matter. Decompression of distal sigmoid colon. Please refer to official radiology report Gastroenterology consulted, they recommend enema/Dulcolax for now. Doubt true obstruction. May be pseudoobstruction from anastomosis point from prior colon surgery. Do not plan to repeat colonoscopy Clear liquid diet for now #Nephrolithiasis CTAP: Right hydroureteronephrosis. Inflammatory changes surrounding the right kidney with right ureteral stone measuring 2 to 3 mm obstruction. -conservative management for now, IVF. -pain control with toradol/morphine #Hydronephrosis - due to stone likely #Fecal impaction -chronic constipatoin - laxatives for now - follow GI recs #Type 2 Diabetes with hyperglycemia - lantus/SSI - accuchecks ac/hs #History of Colon Cancer s/p Resection - noted #Hypertension - resume home losartan #Hepatosteatosis -Outpatient follow-up with GI/hepatology Dispo: Discharge to home Disposition: 01 HOME / SELF CARE / HOMELESS Final Discharge Diagnosis (Prints w/discharge instructions): Nephrolithiasis Time spent for discharge: 35 Core Measure Documentation - Palliative Care Palliative Care/ Comfort Measures: Not Applicable - Core Measures Any of the following diagnoses?: none Exam - Physical Exam Narrative exam: Physical Exam: VITAL SIGNS: Reviewed. GENERAL: The patient appears normally developed, Vital signs as documented. HEAD: No signs of head trauma. EYES: Pupils are equal. Extraocular motions intact. EARS: Hearing grossly intact. MOUTH: Oropharynx is normal. NECK: No adenopathy, no JVD. CHEST: Chest with clear breath sounds bilaterally. No wheezes, rales, or rhonchi. CARDIAC: Regular rate and rhythm. S1 and S2, without murmurs, gallops, or rubs. VASCULAR: No Edema. Peripheral pulses normal and equal in all extremities. ABDOMEN: mild tenderness to palpation in right upper quadrant, now resolved. No rebound or guarding, and no masses palpated. Bowel Sounds normal. MUSCULOSKELETAL: Good range of motion of all major joints. Extremities without clubbing, cyanosis or edema. NEUROLOGIC EXAM: Alert and oriented x 4. no focal sensory or strength deficits. PSYCHIATRIC: Mood normal. SKIN: detail exam as documented in skin assessment - Constitutional Vitals: Temp Pulse Resp BP Pulse Ox 97.8 F 80 16 112/56 96 03/22/21 04:33 03/22/21 04:33 03/22/21 04:33 03/22/21 04:33 03/22/21 04:33 Plan Activity: no restrictions Weight Bearing Status: Full Weight Bearing Diet: clear liquids Follow up with: JULIEN BLUE MD [Primary Care Provider] - 7 Days
[2021-03-22 13:56] VITALS: BP 132/60
--- NOTE | 2021-03-22 18:22 | Electrocardiograph Report ---
[facility] Test Date: 2021-03-22 Test Time: 07:40:02 Pat Name: PRIICLLA GARCÍA Department: Room: A385 1 Gender: F Electrical Maintenance Engineer: RORY : [id number] Requested By: GRANT TAYLOR Order Number: [id number] Reading MD: Brandan Chandler Measurements Intervals [place] Rate: 79 P: 43 NC: 215 QRS: -11 QRSD: 92 T: 47 QT: 414 QTc: 474 Interpretive Statements Sinus rhythm Borderline prolonged NC interval No previous ECG available for comparison Electronically Signed On 03-22-2021 18:22:32 EST by Brandan Chandler
== END 2021-03-22 14:20 | disposition home or self-care (01) ==
LOC: ED 04:55 → 3A 09:52
PROVIDERS: ADMIT Internal Medicine; ATTEND Internal Medicine
DX: K56.41 Fecal impaction (principal); N13.30 Unspecified hydronephrosis; N20.1 Calculus of ureter; N20.0 Calculus of kidney; R10.9 Unspecified abdominal pain; E11.65 Type 2 diabetes mellitus with hyperglycemia; I10 Essential (primary) hypertension; N39.0 Urinary tract infection, site not specified; R11.2 Nausea with vomiting, unspecified; K76.89 Other specified diseases of liver; M19.90 Unspecified osteoarthritis, unspecified site; J45.909 Unspecified asthma, uncomplicated; K56.609 Unspecified intestinal obstruction, unspecified as to partial versus complete obstruction; G43.909 Migraine, unspecified, not intractable, without status migrainosus; Z85.038 Personal history of other malignant neoplasm of large intestine; Z79.84 Long term (current) use of oral hypoglycemic drugs; Z79.899 Other long term (current) drug therapy; Z98.890 Other specified postprocedural states
CPT/HCPCS: 36415; 71046; 74019; 74177; 80053; 81001; 82962; 83690; 84484; 85025; 87086; 93005; 96361; 96365; 96375; 96376; 99285; G0378; J0696; J2270; J2405; J3490; J7030; Q9967; Q0162; J1815